=== PATIENT | female | born 1930 | race Caucasian/White ===

== ENCOUNTER 2018-07-06 13:49 | Inpatient (IN) ==
[2018-07-06] MEDS ORDERED: ACETAMINOPHEN 325 MG TABLET PO PRN (16:17)
[2018-07-06] MEDS ORDERED: NORMAL SALINE 1,000 ML IV ONE (16:20)
--- NOTE | 2018-07-06 16:47 | HP ---
Chief Complaint - Chief Complaint Date of Service: 07/06/18 Time of Service: 16:29 Chief Complaint: I have left hip pain History of Present Illness: 88-year-old female with past medical history of type 2 diabetes, hyperlipidemia, old CVA, gout, was evaluated in the internal medicine clinic for a left femoral neck fracture captured on x-rays. Patient reported stumbling 3 weeks ago and almost falling but stopped herself from falling by grabbing onto something and since then having left hip pain that radiates to her left knee. Since the incident patient has been bearing weight but with discomfort but says that her left knee was becoming more painful and stiff. Patient was seen yesterday here in the internal medicine clinic for left knee pain and left hip discomfort and only crepitance was detected on physical exam. Patient denies falling during that visit but only referred to almost stumbling a couple of weeks prior. Given the presentation of the patient's left lower extremity discomfort, chronic osteoarthritis was suspected and patient was instructed to take Tylenol for pain and was referred to physical therapy for evaluation and treatment. However, patient reports this morning when she woke up from bed her ambulation became very painful and she was barely able to bear weight. She was taken to her physical therapy appointment where staff noticed that patient was unable to bear weight or transfer from one position to another. Her PCP, myself was notified of her significant pain and bilateral hip and left knee x-rays were ordered. Shortly after that a left femoral neck fracture was reported by the radiologist and orthopedic consult. The orthopedic that is on-call presently which is Dr. Rivera was notified and presented the case and he informed me that he will be traveling out of town to Dr. Antonio would be the surgeon on the case. Therefore decision to admit patient to inpatient [facility]rez was taken. Patient is currently on Plavix and aspirin for an old CVA, and those medications were placed on hold for possible surgery in the morning. Patient has a GFR of 33 on her last labs, likely secondary to her chronic conditions such as type 2 diabetes. We will admit her with IV hydration for optimal renal function. She also has a hemoglobin of 9 likely secondary to anemia of chronic disease related to her kidney disease. Patient was scheduled to see a electric stove mechanic at the end of this month for evaluation of her kidney function. 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 Urinary incontinence Onset Date: Unknown Surgical History: Surgical History (Updated 07/06/18 @ 16:47 by Nancy Alford MD) Cholecystectomy planned Onset Date: Unknown Colonoscopy planned Onset Date: ~2003 H/O: hysterectomy Onset Date: Unknown Hx of appendectomy Onset Date: Unknown Hx of eye surgery Onset Date: ~05/01/15 injection in right eye- [place] Status post surgical removal of malignant neoplasm of skin Onset Date: ~08/06/16 squamous cell carcinoma upper lip- Dr Nagy Family History: Family History (Updated 09/29/17 @ 14:25 by Ivy Michelle RN) Father Emphysema lung Mother Diabetes Anemia Hypertension Brother CVA (cerebral vascular accident) Diabetes Parkinson disease TIA (transient ischemic attack) Sister , age 74 Myocardial infarction Social History: Preferred Language Hebrew Smoking Status Never smoker Abuse History No History of abuse Psych History Hx of Anxiety (Last Updated 07/06/18 @ 15:42 by Nancy Alford MD) No Social History Section defined Peds Patient Hx - Developmental: No Pertinent Hx Peds Patient Hx - Medical: No Pertinent Hx Peds Patient Hx - Cardiac/Respiratory: No Pertinent Hx Peds Patient Hx - Surgical: No Surgical History Patient History - Cancer: No Hx of Cancer Review Of Systems (GEN) - Review of Systems Generalized/Overall Review: Present: No Symptoms Reported EENTM: Present: No Symptoms Reported Respiratory: Present: No Symptoms Reported Cardiac: Present: No Symptoms Reported Abdominal: Present: No Symptoms Reported Genitourinary: Present: No Symptoms Reported Musculoskeletal: Present: Joint Pain, Joint Swelling - Left hip pain Neurological: Present: No Symptoms Reported Skin: Present: No Symptoms Reported Endocrine: Present: No Symptoms Reported Immunizations: IMMUNIZATION HX Immunizations Up to Date Yes History of Influenza Vaccine More Information Required Hx Pneumococcal Vaccination More Information Required Allergies/Adverse Reactions: Allergies Allergy/AdvReac Type Severity Reaction Status Date / Time No Known Allergies Allergy Verified 07/06/18 14:33 Home Medications: HOME MEDICATIONS Cholecalciferol (Vitamin D3) [Vitamin D-3] 2,000 unit PO DAILY@1200 #100 tab 04/02/15 [Last Taken Unknown] aspirin 81 mg tablet,delayed release 81 mg PO DAILY 09/29/17 [Last Taken Unknown] ascorbic acid (vitamin C) 500 mg capsule 500 mg PO DAILY cap 10/11/17 [Last Taken Unknown] atorvastatin 40 mg tablet 40 mg PO DAILY #90 tab 03/09/18 [Last Taken Unknown] blood-glucose meter kit See Dose Instructions .ROUTE .MEDSUPPLY ea 04/04/18 [Last Taken Unknown] folic acid-vit B6-vit B12 0.8 mg-10 mg-115 mcg tablet 1 tab PO DAILY #90 tab 04/04/18 [Last Taken Unknown] magnesium 30 mg tablet 30 mg PO DAILY 04/04/18 [Last Taken Unknown] allopurinol 300 mg tablet See Rx Instructions .ROUTE .COMPLEX #90 tablet 04/07/18 [Last Taken Unknown] blood sugar diagnostic strips See Dose Instructions .ROUTE .MEDSUPPLY #100 ea 04/14/18 [Last Taken Unknown] lancets 30 gauge See Dose Instructions .ROUTE .MEDSUPPLY #100 ea 04/14/18 [Last Taken Unknown] magnesium oxide 400 mg capsule 400 mg PO DAILY cap 05/11/18 [Last Taken Unknown] carvedilol 6.25 mg tablet 6.25 mg PO BID #60 tab 05/16/18 [Last Taken Unknown] metformin ER 500 mg tablet,extended release 24 hr See Rx Instructions .ROUTE .COMPLEX #60 tablet 06/20/18 [Last Taken Unknown] clopidogrel 75 mg tablet See Rx Instructions .ROUTE .COMPLEX #30 tablet 06/22/18 [Last Taken Unknown] lisinopril 20 mg tablet See Rx Instructions .ROUTE .COMPLEX #60 tablet 06/22/18 [Last Taken Unknown] Exam - Exam Constitutional: Present: Alert, Oriented x3, Cooperative, Well developed, Well nourished, No distress, Elderly ENT Exam: Present: normal ENT inspection, hearing grossly normal, pharynx no rmal, TMs normal Eye Exam: bilateral eye: normal inspection, PERRL, EOMI Neck: Present: non-tender, full range of motion, supple, normal inspection, t rachea midline Back Exam: Present: normal inspection, no CVA tenderness, no vertebral tenderness Breasts: Present: Exam deferred Respiratory: Present: chest non-tender, lungs clear, normal breath sounds, no respiratory distress, no accessory muscle use Cardiovascular/Chest: Present: normal peripheral pulses, regular rate, rhythm, no chest tenderness, no edema, no gallop, no JVD, no murmur, no rub Peripheral Pulses: carotid (R): 3+, carotid (L): 3+, femoral (R): 3+, femoral (L): 3+, dorsalis-pedis (R): 3+, dorsalis-pedis (L): 3+ Abdomen: Present: Normal bowel sounds, soft, nontender, nondistended, no rebound tenderness, no hepatospenomegaly, no masses /Rectal: Present: Exam deferred Extremity: Present: no pedal edema, no calf tenderness, normal capillary refill, leg pain, other - Left lower extremity externally rotated with marked tenderness at the left. Large ecchymosis of right upper extremity with no tenderness Skin Exam: Present: normal color, warm/dry, no cyanosis Lymphatic: Present: no adenopathy Neurologic: Present: it teacher II-XII nml as tested, normal cerebellar test, no motor/sensory deficits, alert, normal mood/affect, oriented x 3 Appearance: Present: appropriate appearance, appropriate insight, neat Eye contact: Present: cooperative, good eye contact, normal speech Thoughts: Present: normal thought pattern, no apparent hallucination Assessment/Plan - Narrative Narrative: Patient was evaluated medical chart was reviewed and decision to admit with a diagnosis of a left femoral neck fracture with consult to orthopedic surgery was taken. Case was presented to Dr. Rivera who is a physician preparation plant supervisor today when he said that he would alert Dr. Mares which will be covering on the case. Patient's Plavix and aspirin were placed on hold for possible surgery in the morning, IV hydration optimal renal function was ordered, as well as baseline labs. All routine meds were ordered to be administered during the patient's hospital stay. We will follow-up with recommendations from Ortho for a possible arthroplasty. After evaluating patient she was cleared for surgery. - Assessment/Plan (1) Left hip pain Problem: Acute (2) Left displaced femoral neck fracture Problem: Acute (3) Diabetes Problem: Chronic Qualifiers: Diabetes mellitus type: type 2 (4) CKD (chronic kidney disease) stage 3, GFR 30-59 ml/min Problem: Chronic (5) Anemia of chronic disease Problem: Chronic
[2018-07-06 16:59] LABS: Hematocrit 24.8 % (37.0-47.0); Hemoglobin 8.2 gm/dL (12.5-16.0); Mean Cell Volume 103.3 fl (78-100); Mean Corpuscular Hemoglobin 34.2 pg (27-31); Mean Corpuscular Hgb Conc 33.1 g/dl (32-36); Mean Platelet Volume 10.9 fl (8-12.5); Neutrophil # 10.2 K/mm3 (1.3-6.0); Neutrophil % 82.5 % (42-75.0); Platelet Count 144 K/mm3 (150-450); Red Cell Distribution Width 15.6 % (11.5-14.0); White Blood Count 12.4 K/mm3 (4.0-10.5)
[2018-07-06 17:11] LABS: Prothrombin Time (Patient) 12.6 Seconds (9.1-10.7)
[2018-07-06 17:12] LABS: Albumin * 2.8 gm/dl (3.4-5.0); BUN/Creatinine Ratio 23.7 (9.0-21.6); Bilirubin, Total 1.8 mg/dL (0.0-1.1); Ca. Corrected For Albumin 10.2 mg/dL (8.4-10.2); Calcium * 9.6 mg/dL (7.9-10.9); Carbon Dioxide 24.5 mmol/L (24-32.6); INR 1.29 INR (0.92-1.08); Partial Thrombolplastin Time 35.7 Seconds (24-32); Potassium 4.5 mmol/L (3.4-4.6); Total Protein 6.6 gm/dL (6.2-8.2)
[2018-07-06] MEDS: ALLOPURINOL 300 MG TABLET PO SCH (17:58)
[2018-07-06] MEDS ORDERED: ROSUVASTATIN CALCIUM 10 MG TABLET ONE (21:08)
[2018-07-06] MEDS: CARVEDILOL 6.25 MG TABLET PO SCH (21:28)
[2018-07-06] MEDS: ROSUVASTATIN CALCIUM 20 MG TABLET PO SCH (21:30)
[2018-07-06] MEDS: PANTOPRAZOLE SODIUM 20 MG TABLET.DR PO SCH (21:30)
[2018-07-06] MEDS: MORPHINE SULFATE 2 MG/ML DISP.SYRIN IV PRN (21:33)
[2018-07-07] MEDS: PANTOPRAZOLE SODIUM 20 MG TABLET.DR PO SCH ×2 (07:19→21:06)
--- NOTE | 2018-07-07 07:49 | CONS ---
[facility] - General Date of Service: 07/06/18 Narrative: Patient presented to her PCP with inability to ambulate and left hip pain. X- rays were obtained by patient's PCP revealing a left femoral neck fracture with significant displacement. Orthopedics was consulted, patient was admitted to the hospital. Per patient and family she had no significant fall, notes she may have stumbled the other day while walking. They state patient's pain is significantly worse with any motion or weightbearing, better with rest. Patient states she walks with a cane outside of her home and occasionally inside her home. Patient is a community ambulator, she lives at home with 2 of her daughters. No significant previous treatments have been performed for this left hip pain. Source: patient, family - History of Present Illness Allergies/Adverse Reactions: Allergies No Known Allergies Allergy (Verified 07/06/18 17:50) Home Medications: Home Medications Medication Instructions Recorded Last Taken blood-glucose meter kit See Dose Instructions .ROUTE 04/04/18 Unknown .MEDSUPPLY ea blood sugar diagnostic strips See Dose Instructions .ROUTE 04/14/18 Unknown .MEDSUPPLY #100 ea lancets 30 gauge See Dose Instructions .ROUTE 04/14/18 Unknown .MEDSUPPLY #100 ea Acetaminophen [Tylenol] 500 mg PO Q4H 07/06/18 Unknown Allopurinol [Zyloprim] 300 mg PO DAILY 07/06/18 Unknown Aspirin [Aspirin EC] 81 mg PO HS 07/06/18 Unknown Carvedilol [Coreg] 6.25 mg PO BID 07/06/18 Unknown Cholecalciferol (Vitamin D3) 2,000 unit PO DAILY 07/06/18 Unknown [Vitamin D] Clopidogrel Bisulfate [Plavix] 75 mg PO DAILY 07/06/18 Unknown RX: Atorvastatin Calcium 40 mg PO HS 07/06/18 Unknown RX: Folic Acid 0.4 mg PO DAILY 07/06/18 Unknown RX: Lisinopril 20 mg PO DAILY 07/06/18 Unknown Ubidecarenone [Coenzyme Q10] 100 mg PO DAILY 07/06/18 Unknown metFORMIN HCL [Glucophage] 500 mg PO BID 07/06/18 Unknown Procedures 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] (06/21/07) Medications - Medications Current Medications: Current Medications Acetaminophen (Tylenol) 650 mg PO Q6H PRN PRN Reason: Mild pain (pain scale 1-3) Stop: 08/05/18 16:18 Last Admin: 07/06/18 18:00 Dose: 650 mg Documented by: Allopurinol (Zyloprim) 300 mg PO DAILY [facility] Stop: 08/05/18 16:31 Last Admin: 07/06/18 17:58 Dose: 300 mg Documented by: Carvedilol (Coreg) 6.25 mg PO BID [facility] Stop: 08/05/18 21:01 Last Admin: 07/06/18 21:28 Dose: 6.25 mg Documented by: Metformin HCl (Glucophage Xr) 500 mg PO BIDWM [facility] Stop: 08/05/18 17:01 Last Admin: 07/06/18 17:58 Dose: 500 mg Documented by: Morphine Sulfate (Morphine Sulfate) 1 mg IV Q2H PRN PRN Reason: Pain Stop: 08/05/18 17:00 Last Admin: 07/06/18 21:33 Dose: 1 mg Documented by: Pantoprazole Sodium (Protonix) 20 mg PO BID@0700,2100 [facility] Stop: 08/05/18 21:01 Last Admin: 07/07/18 07:19 Dose: 20 mg Documented by: Rosuvastatin Calcium (Crestor) 20 mg PO HS [facility] Stop: 08/05/18 21:01 Last Admin: 07/06/18 21:30 Dose: 20 mg Documented by: Physical Examination - Exam Vital Signs: Vital Signs - Last Taken Temp 36.3 C 07/07/18 06:35 Pulse 92 07/07/18 06:35 Resp 16 07/07/18 06:35 BP 127/70 07/07/18 06:35 Pulse Ox 98 07/07/18 06:35 O2 Oxygen Delivery Method Room Air Constitutional: Present: Alert, Cooperative, Mild distress Extremity: Present: other - RUE--> significant ecchymosis around proximal humerus, sensation intact light touch, distal capillary refill brisk, smoke jumper strength 4+/5, mild diffuse tenderness about her right shoulder LLE--> diffuse tenderness about her right hip, significant external rotation and shortening of the limb, 5/5 plantar flexion dorsiflexion of left ankle, dorsal pedis pulse 2+, sensation intact light touch, mild ecchymosis diffusely about hip - Results and Findings: Lab/Microbiology results last 24 hrs: Abnormal/Pending Laboratory Last 24 HRS 07/07/18 07/06/18 07/06/18 06:40 16:50 16:50 WBC RBC Hgb Hct MCV MCH RDW Plt Count Immature Gran % (Auto) Immature Gran # (Auto) Neutrophils % Lymphocytes % Neutrophils # Lymphocytes # PT 12.6 H INR (Anticoag Therapy) 1.29 H PTT ([place]) 35.7 H Anion Gap 16.0 H BUN 37 H Creatinine 1.56 H Est GFR (Non-Af Amer) 33 L BUN/Creatinine Ratio 23.7 H Random Glucose 224 H Total Bilirubin 1.8 H AST 74 H Alkaline Phosphatase 347 H Albumin 2.8 L Crossmatch See Detail 07/06/18 16:50 WBC 12.4 H RBC 2.40 L Hgb 8.2 L Hct 24.8 L MCV 103.3 H MCH 34.2 H RDW 15.6 H Plt Count 144 L Immature Gran % (Auto) 0.60 H Immature Gran # (Auto) 0.07 H Neutrophils % 82.5 H Lymphocytes % 8.4 L Neutrophils # 10.2 H Lymphocytes # 1.04 L PT INR (Anticoag Therapy) PTT ([place]) Anion Gap BUN Creatinine Est GFR (Non-Af Amer) BUN/Creatinine Ratio Random Glucose Total Bilirubin AST Alkaline Phosphatase Albumin Crossmatch - Assessments/Findings (1) Left displaced femoral neck fracture Problem: Acute Plan - Plan Plan: -88-year-old female presented to PCP for evaluation of left hip pain that has been ongoing and worsening over the past week. X-ray revealed displaced femoral neck fracture of the left femur. Patient was unable to ambulate upon presentation. Patient was admitted to the hospital for further care. Discussed with patient and family conservative or surgical intervention including risk first benefits including but not limited to infection, bleeding, DVT, cardiac risk, stroke risk, continued pain, malunion versus nonunion healing, surgical complications. Patient family expressed understanding and stated they wish to proceed with surgical intervention. Consent will be obtained prior to surgery. Plan for Dr. Ricci to perform left hemiarthroplasty versus total hip replacement on 07/07/2018. Patient will need preoperative clearance from medicine team. Note patient has been treated with Plavix and low-dose aspirin daily. At this time these medications have been held, plan to resume postoperatively.
[2018-07-07] MEDS ORDERED: ceFAZolin SODIUM 1 GM VIAL IV PRN (08:12)
[2018-07-07] MEDS: CARVEDILOL 6.25 MG TABLET PO SCH ×3 (08:46→21:16)
[2018-07-07] MEDS: MAGNESIUM OXIDE 400 MG TABLET PO SCH (08:47)
[2018-07-07] MEDS: VITAMIN B COMP W-C 1 TAB TABLET PO SCH (08:47)
[2018-07-07] MEDS: ASCORBIC ACID 500 MG TABLET PO SCH (08:47)
[2018-07-07] MEDS: MAGNESIUM 30 MG PO SCH (08:47)
[2018-07-07] MEDS: ALLOPURINOL 300 MG TABLET PO SCH (08:48)
[2018-07-07] MEDS: LISINOPRIL 20 MG TABLET PO SCH (08:48)
--- NOTE | 2018-07-07 10:15 | PN ---
Subjective - Date and Time Seen Date: 07/07/18 Time: 10:00 Objective Objective Narrative: I feel comfortable, left hip pain is well controlled - Review of Systems Generalized/Overall Review: Reports: No Symptoms Reported EENTM: Reports: No Symptoms Reported Respiratory: Reports: No Symptoms Reported Cardiac: Reports: No Symptoms Reported Abdominal: Reports: No Symptoms Reported Genitourinary Symptoms: Reports: No Symptoms Reported Musculoskeletal Complaints: Reports: Joint Pain Neurological: Reports: No Symptoms Reported Skin: Reports: No Symptoms Reported Endocrine: Reports: No Symptoms Reported - Vitals Vitals: Last Vital Signs Temp 36.3 C 07/07/18 06:35 Pulse 92 07/07/18 08:48 Resp 16 07/07/18 06:35 BP 127/70 07/07/18 08:48 Pulse Ox 98 07/07/18 06:35 - Abnormal Lab Findings Abnormal Lab Findings: Abnormal Lab Results 07/06/18 07/06/18 07/06/18 Range/Units 16:50 16:50 16:50 WBC 12.4 H (4.0-10.5) K/mm3 RBC 2.40 L (4.2-5.4) M/mm3 Hgb 8.2 L (12.5-16.0) gm/dL Hct 24.8 L (37.0-47.0) % MCV 103.3 H (78-100) fl MCH 34.2 H (27-31) pg RDW 15.6 H (11.5-14.0) % Plt Count 144 L (150-450) K/mm3 Immature Gran % (Auto) 0.60 H (0.001-0.429) % Immature Gran # (Auto) 0.07 H (0.000-0.0310) K/mm3 Neutrophils % 82.5 H (42-75.0) % Lymphocytes % 8.4 L (20-51) % Neutrophils # 10.2 H (1.3-6.0) K/mm3 Lymphocytes # 1.04 L (1.5-3.5) k/mm3 PT 12.6 H (9.1-10.7) Seconds INR (Anticoag Therapy) 1.29 H (0.92-1.08) INR PTT ([place]) 35.7 H (24-32) Seconds Anion Gap 16.0 H (6.8-13.8) mmol/L BUN 37 H (3-23) mg/dL Creatinine 1.56 H (0.4-1.4) mg/dL Est GFR (Non-Af Amer) 33 L (60-130) mL/min BUN/Creatinine Ratio 23.7 H (9.0-21.6) Random Glucose 224 H (70-110) mg/dL Total Bilirubin 1.8 H (0.0-1.1) mg/dL AST 74 H (0-48) U/L Alkaline Phosphatase 347 H (50-170) U/L Albumin 2.8 L (3.4-5.0) gm/dl Crossmatch 07/07/18 Range/Units 06:40 WBC (4.0-10.5) K/mm3 RBC (4.2-5.4) M/mm3 Hgb (12.5-16.0) gm/dL Hct (37.0-47.0) % MCV (78-100) fl MCH (27-31) pg RDW (11.5-14.0) % Plt Count (150-450) K/mm3 Immature Gran % (Auto) (0.001-0.429) % Immature Gran # (Auto) (0.000-0.0310) K/mm3 Neutrophils % (42-75.0) % Lymphocytes % (20-51) % Neutrophils # (1.3-6.0) K/mm3 Lymphocytes # (1.5-3.5) k/mm3 PT (9.1-10.7) Seconds INR (Anticoag Therapy) (0.92-1.08) INR PTT ([place]) (24-32) Seconds Anion Gap (6.8-13.8) mmol/L BUN (3-23) mg/dL Creatinine (0.4-1.4) mg/dL Est GFR (Non-Af Amer) (60-130) mL/min BUN/Creatinine Ratio (9.0-21.6) Random Glucose (70-110) mg/dL Total Bilirubin (0.0-1.1) mg/dL AST (0-48) U/L Alkaline Phosphatase (50-170) U/L Albumin (3.4-5.0) gm/dl Crossmatch See Detail - Exam Constitutional: Present: Alert, Oriented x3, Cooperative, Well developed, Well nourished, No distress ENT Exam: Present: normal ENT inspection, hearing grossly normal, pharynx normal, TMs normal, hard of hearing Neck: Present: non-tender, full range of motion, supple, normal inspection, trachea midline Breasts: Present: Exam deferred Respiratory: Present: chest non-tender, lungs clear, normal breath sounds, no respiratory distress, no accessory muscle use Cardiovascular/Chest: Present: normal peripheral pulses, regular rate, rhythm, no chest tenderness, no edema, no gallop, no JVD, no murmur Abdomen: Present: Normal bowel sounds, soft, nontender, nondistended, no rebound tenderness, no hepatospenomegaly /Rectal: Present: Exam deferred Extremity: Present: no pedal edema, no calf tenderness, normal capillary refill, leg pain, other - Left hip tenderness on palpation, left lower extremity with external rotation Skin Exam: Present: normal color, warm/dry, no cyanosis Lymphatic: Present: no adenopathy Neurologic: Present: coal handler II-XII nml as tested Appearance: Present: appropriate appearance, appropriate insight, neat, no memory impairment Eye contact: Present: cooperative, good eye contact, normal speech Thoughts: Present: normal thought pattern, no apparent hallucination Assessment/Plan Plan Narrative: 88-year-old female admitted for left femoral neck fracture was evaluated at bedside was found to be afebrile and in no acute distress. [facility], no irregular behaviors or adverse were reported by nursing staff. Patient underwent an EKG which demonstrated normal sinus rhythm and an adequate rate. Presurgical chest x-ray was also ordered which was negative for any acute infections or other abnormal findings. Patient's presurgical labs demonstrated a hemoglobin of 8.2 which indicates a decrease since her last CBC and then in April. Patient has chronic kidney disease stage III which might explain the decreased hemoglobin, it is very likely that she has anemia of chronic disease. However as a precaution and in preparation for surgical repair of her left hip fracture, patient was ordered to be transfused one-pint of PRBCs and another pint was held in case of excessive bleeding during surgery. Patient was also treated with IV fluids to optimize her renal function before surgery. She was evaluated by Dr. Antonio who is the orthopedic surgeon that we will be performing her arthroplasty later this afternoon. He was in agreement with the blood transfusion and plan to taken to the OR later today as previously stated. In the meantime patient's metformin was discontinued given her decreased GFR and as a precaution to avoid lactic ac idosis, she was placed on an insulin sliding scale for management of her diabetes during the hospitalization. Follow-up labs will be ordered for tomorrow morning to follow up on kidney function and hemoglobin. After thorough evaluation of the patient and medical chart patient was cleared for surgical procedure to repair her left femoral neck fracture. Patient will be signed off to Dr. Brain Wagoner since I will be away starting later this afternoon. - Problems/Diagnosis (1) Left hip pain Problem: Acute (2) Left displaced femoral neck fracture Problem: Acute (3) Diabetes Problem: Chronic Qualifiers: Diabetes mellitus type: type 2 (4) CKD (chronic kidney disease) stage 3, GFR 30-59 ml/min Problem: Chronic (5) Anemia of chronic disease Problem: Chronic
[2018-07-07] MEDS: CHOLECALCIFEROL 1,000 UNIT CAPSULE PO SCH (12:10)
--- NOTE | 2018-07-07 12:10 | PN ---
Subjective - Date and Time Seen Date: 07/07/18 Time: 10:00 Subjective Narrative: Patient is resting comfortable in bed. Family is in room casually. Patient notes she her pain is well controlled at this time. She notes her pain is worse with movement better with rest. She notes no significant acute symptoms otherwise currently. Objective - Vitals Vitals: Last Vital Signs Temp 36.7 C 07/07/18 11:31 Pulse 92 07/07/18 11:31 Resp 16 07/07/18 11:31 BP 133/52 07/07/18 11:31 Pulse Ox 95 07/07/18 11:31 - Abnormal Lab Findings Abnormal Lab Findings: Abnormal Lab Results 07/06/18 07/06/18 07/06/18 Range/Units 16:50 16:50 16:50 WBC 12.4 H (4.0-10.5) K/mm3 RBC 2.40 L (4.2-5.4) M/mm3 Hgb 8.2 L (12.5-16.0) gm/dL Hct 24.8 L (37.0-47.0) % MCV 103.3 H (78-100) fl MCH 34.2 H (27-31) pg RDW 15.6 H (11.5-14.0) % Plt Count 144 L (150-450) K/mm3 Immature Gran % (Auto) 0.60 H (0.001-0.429) % Immature Gran # (Auto) 0.07 H (0.000-0.0310) K/mm3 Neutrophils % 82.5 H (42-75.0) % Lymphocytes % 8.4 L (20-51) % Neutrophils # 10.2 H (1.3-6.0) K/mm3 Lymphocytes # 1.04 L (1.5-3.5) k/mm3 PT 12.6 H (9.1-10.7) Seconds INR (Anticoag Therapy) 1.29 H (0.92-1.08) INR PTT (Jenni) 35.7 H (24-32) Seconds Anion Gap 16.0 H (6.8-13.8) mmol/L BUN 37 H (3-23) mg/dL Creatinine 1.56 H (0.4-1.4) mg/dL Est GFR (Non-Af Amer) 33 L (60-130) mL/min BUN/Creatinine Ratio 23.7 H (9.0-21.6) Random Glucose 224 H (70-110) mg/dL Total Bilirubin 1.8 H (0.0-1.1) mg/dL AST 74 H (0-48) U/L Alkaline Phosphatase 347 H (50-170) U/L Albumin 2.8 L (3.4-5.0) gm/dl Crossmatch 07/07/18 Range/Units 06:40 WBC (4.0-10.5) K/mm3 RBC (4.2-5.4) M/mm3 Hgb (12.5-16.0) gm/dL Hct (37.0-47.0) % MCV (78-100) fl MCH (27-31) pg RDW (11.5-14.0) % Plt Count (150-450) K/mm3 Immature Gran % (Auto) (0.001-0.429) % Immature Gran # (Auto) (0.000-0.0310) K/mm3 Neutrophils % (42-75.0) % Lymphocytes % (20-51) % Neutrophils # (1.3-6.0) K/mm3 Lymphocytes # (1.5-3.5) k/mm3 PT (9.1-10.7) Seconds INR (Anticoag Therapy) (0.92-1.08) INR PTT (Ejnni) (24-32) Seconds Anion Gap (6.8-13.8) mmol/L BUN (3-23) mg/dL Creatinine (0.4-1.4) mg/dL Est GFR (Non-Af Amer) (60-130) mL/min BUN/Creatinine Ratio (9.0-21.6) Random Glucose (70-110) mg/dL Total Bilirubin (0.0-1.1) mg/dL AST (0-48) U/L Alkaline Phosphatase (50-170) U/L Albumin (3.4-5.0) gm/dl Crossmatch See Detail - Exam Constitutional: Present: Alert, Cooperative Extremity: Present: other - LLE--> no obvious wounds or deformity, significant shortening and external rotation of the hip, diffuse tenderness about her hip, 5/5 plantar flexion dorsiflexion ankle, distal capillary refill brisk, sensation intact light touch Assessment/Plan Plan Narrative: -88-year-old female who was admitted for a left displaced femoral neck fracture. Discussed conservative or surgical intervention previously, discussed again today with the family, consent was obtained for surgical intervention on . Patient will undergo surgery with plan to continue treatment care in the hospital. Patient will need pain control, observation, PT/OT, possible discharge to long-term facility after surgical intervention will be determined. Patient will undergo left hip cemented hemiarthroplasty by Dr. Ricci. All patient family questions have been asked, they expressed understanding of the surgical risk as well as treatment plan. - Problems/Diagnosis (1) Left displaced femoral neck fracture Problem: Acute
[2018-07-07] MEDS: INSULIN REGULAR, HUMAN 100 UNITS/ML VIAL SC SCH ×3 (12:11→21:07)
--- NOTE | 2018-07-07 13:59 | ANES ---
Anesthesia Pre Procedure Eval Vitals/Labs: Last Vital Signs Temp 36.7 C 07/07/18 11:31 Pulse 92 07/07/18 11:31 Resp 16 07/07/18 11:31 BP 133/52 07/07/18 11:31 Pulse Ox 95 07/07/18 11:31 HOME MEDICATIONS blood-glucose meter kit See Dose Instructions .ROUTE .MEDSUPPLY ea 04/04/18 [Last Taken Unknown] blood sugar diagnostic strips See Dose Instructions .ROUTE .MEDSUPPLY #100 ea 04/14/18 [Last Taken Unknown] lancets 30 gauge See Dose Instructions .ROUTE .MEDSUPPLY #100 ea 04/14/18 [Last Taken Unknown] Acetaminophen [Tylenol] 500 mg PO Q4H 07/06/18 [Last Taken Unknown] Allopurinol [Zyloprim] 300 mg PO DAILY 07/06/18 [Last Taken Unknown] Aspirin [Aspirin EC] 81 mg PO HS 07/06/18 [Last Taken Unknown] Atorvastatin Calcium 40 mg PO HS 07/06/18 [Last Taken Unknown] Carvedilol [Coreg] 6.25 mg PO BID 07/06/18 [Last Taken Unknown] Cholecalciferol (Vitamin D3) [Vitamin D] 2,000 unit PO DAILY 07/06/18 [Last Taken Unknown] Clopidogrel Bisulfate [Plavix] 75 mg PO DAILY 07/06/18 [Last Taken Unknown] Folic Acid 0.4 mg PO DAILY 07/06/18 [Last Taken Unknown] Lisinopril 20 mg PO DAILY 07/06/18 [Last Taken Unknown] Ubidecarenone [Coenzyme Q10] 100 mg PO DAILY 07/06/18 [Last Taken Unknown] metFORMIN HCL [Glucophage] 500 mg PO BID 07/06/18 [Last Taken Unknown] Allergies/Adverse Reactions: Allergies Allergy/AdvReac Type Severity Reaction Status Date / Time No Known Allergies Allergy Verified 07/06/18 17:50 - Planned Procedure Planned Procedure: Left HIP FX Medication List Reviewed:: Yes Allergies Verified: Yes 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 Urinary incontinence Onset Date: Unknown Surgical History (Updated 07/06/18 @ 16:47 by Nancy Alford MD) Cholecystectomy planned Onset Date: Unknown Colonoscopy planned Onset Date: ~2003 H/O: hysterectomy Onset Date: Unknown Hx of appendectomy Onset Date: Unknown Hx of eye surgery Onset Date: ~05/01/15 injection in right eye- [place] Status post surgical removal of malignant neoplasm of skin Onset Date: ~08/06/16 squamous cell carcinoma upper lip- Dr Nagy Family History (Updated 09/29/17 @ 14:25 by Ivy Michelle, SHAUNA) Father Emphysema lung Mother Diabetes Anemia Hypertension Brother CVA (cerebral vascular accident) Diabetes Parkinson disease TIA (transient ischemic attack) Sister , age 74 Myocardial infarction - Family Anesthesia History Family History:: no untoward family reactions to anesthesia - Airway/Neck/Teeth Teeth Condition: missing Neck Exam: limited range of motion Mallampatti Score: 3 Thyromental (T-M) distance: > 6 cm Mandibulo Hyoid distance: > 3 cm - Respiratory Respiratory Physical: lungs clear Smoking Status: Never smoker Sleep Apnea currently treated: No Sleep Apnea by current assessment: No - Cardiovascular Cardiac History: CVA/stroke, hypertension Tolerate Activity: Fair Heart Sounds: S1 & S2, Regular - Anesthesia Assessment and Plan ASA Class: PS, III Anesthesia Type Plan: General ET Planned difficult intubation/equipment available: Yes
[2018-07-07] MEDS: RINGER'S SOLUTION,LACTATED 1,000 ML IV PRN ×3 (16:25→18:30)
[2018-07-07] MEDS ORDERED: HYDROcodone/ACETAMINOPHEN 1 EACH TABLET PO PRN (18:13)
[2018-07-07] MEDS ORDERED: ACETAMINOPHEN 500 MG TABLET PO PRN (18:13)
[2018-07-07] MEDS ORDERED: MAG HYDROX/ALUMINUM HYD/SIMETH 30 ML UDC PO PRN (18:13)
[2018-07-07] MEDS ORDERED: MAGNESIUM HYDROXIDE 30 ML UDC PO PRN (18:13)
[2018-07-07] MEDS ORDERED: ONDANSETRON HCL/PF 2 MG/ML VIAL IV PRN (18:13)
--- NOTE | 2018-07-07 18:20 | OR ---
Operative Report - Dictated Report Narrative: Date: 07/07/2018 Preoperative diagnosis: Closed left hip displaced femoral neck fracture. Postoperative diagnosis: Closed left hip displaced femoral neck fracture Procedure: Left hip cemented arabella-arthroplasty. Surgeon: Timoteo Ricci M.D. Drafter Refrigeration: Lorenzo Ribeiro PA-C (provided essential set of skilled, educated hands that assisted with transfer, positioning, prepping, draping, retraction, manipulation, placement of implants, irrigation, closure wounds, and application of dressings all of which could not be performed by the available surgical crew) Anesthesia: General Complications: None Specimens: Bone. Estimated blood loss: 150 milliliters. Retained implants: Depuy Crane size 3 basic cemented femoral stem. Size 43 millimeter ouside diameter self-centering bipolar head with +1.5 millimeter cobalt chromium 28 mm femoral head. Indications: Mrs. Estrada is a 88-year-old female who fell at home resulting in injury to her left hip. This patient was evaluated on the floor and found to have sustained a displaced femoral neck fracture. The risks and benefits were discussed with the patient as well as any power of manager long term care or family . The patient wished to proceed with surgical treatment. The risks, benefits, and alternatives discussed were , blood clots, bleeding, infection, nerve/tendon blood vessel/ injury, malposition of components, dislocation and/or instability of joint, intraoperative fracture, postoperative limited range of motion, persistent pain, failure of components, and need for additional procedures. Patient wished to proceed. Consent was obtained after answering all questions. Procedure: After marking the correct extremity on the floor, the patient was taken to the operating room. A timeout was performed. IV antibiotics consisting of Ancef were administered prior to the procedure. A general anesthetic was induced by anesthesia. A Lafleur catheter was inserted if not are in place. The patient was then transitioned to a lateral position on a well- padded pegboard. An axillary roll was placed. The head was in neutral position. The non-operative down leg was well-padded with SCD and JIMMIE hose in place. The arms were supported and padded to protect from any undue pressure on the bony prominences and nerves. Well-padded anterior and posterior pelvic and chest posts were secured in order to maintain a stable position of the pelvis. This was placed so that the pelvis was perpendicular to the floor. The body was in line with the pelvis. Once it was felt that we had protected all the bony prominences and the patient was well secured with a safety belt as well, the leg was pre-scrubbed with alcohol, prepped and draped in a standard sterile fashion. A standard anterior lateral hip incision was marked out over the greater trochanter. Ioban drapes were then placed. The skin incision was then made. Sharp dissection with a scalpel utilizing cautery for hemostasis was carried out down to the gluteus and iliotibial band fascia. This was split in line with the skin incision. The greater trochanter bursa was excised. The anterior and posterior margins of the abductor tendon were identified. The anterior 1/2-1/3 of the tendon was tagged and reflected off the greater trochanter leaving a sleeve of tendon for repair at the completion of the case. This exposed the underlying hip joint capsule. An inverted T-type capsulotomy was made extending this up to the brim of the acetabulum. We encountered noted displacement of the femoral neck fracture. Using Homans to assist with elevation of the soft tissues off the anterior, superior, and inferior aspects of the femoral neck, the hip was then placed in a figure 4 position for a femoral neck cleanup cut to be made. With the leg in an externally rotated and adducted position, the cutting flag was utilized in order to anupama for a standard femoral neck cut approximately a fingerbreadth above the level of the lesser trochanter. This was done while protecting the surrounding soft tissues with Homans. The femoral head was then removed and sized for guidance on the size of the bipolar head. It was noted that there was no significant loss of articular cartilage on both the femoral head and weightbearing portions of the acetabulum. We then returned the leg to the table and turned our attention to the acetabulum. While protecting the surrounding soft tissues, the labrum and remaining tissue in the fovea were excised using a scalpel and cautery. The acetabulum was then protected with a sponge while we returned our attention to the femur. With the leg in a figure 4 position utilizing Homans for soft tissue protection, a box cutting osteotome, followed by Carrieey awl, followed by serial broaches were utilized in order to prepare the femur. It was found that a size 3 broach gave good axial and rotational stability. The proximal femur was visualized to ensure that there were no signs of fracture. A series of heads were trialed. It was found that a + 1.5 mm femoral head gave good overall stability. There is minimal longitudinal instability. Hip range of motion was able to reach full extension and external rotation to greater than 75 degrees prior to impingement along the posterior acetabulum. The hip was able to be flexed to greater than 90 degrees with internal rotation greater than 60 degrees prior to anterior impingement. The limb lengths were near equal based on comparison to the contralateral side . At this point was felt this was the appropriately sized femoral components as well as neck and femoral head. The trial implants were removed. A canal cement plug was placed distally and the canal was thoroughly irrigated using pulsatile vacuum brush device. The canal was then thoroughly dried with a suction device. The cement was vacuum mixed per the conveyor system operator's instructions and placed into a cement gun. Cement was then placed in the dry irrigated femur using modern cementing technique using a pressurizing device. The stem was then placed in the appropriate version compared to her pauma anatomy and held in place while the cement cured and the extruded cement was removed. Once the cement was fully cured, we ensured that the stem was stable and that there were no signs of fracture. The remaining extruded cement was removed, and the joint and the capsule were thoroughly evaluated to ensure there are no cement fragments. The final femoral bipolar head was then impacted in the place. The hip was then reduced and seated completely. The capsule was repaired with a single interrupted #1 Vicryl. The abductor tendon was repaired to the greater trochanter utilizing #5 Ethibond through drill holes. This was oversewn with #1 Vicryl. The fascia was closed with #1 stratavara. The wounds were thoroughly irrigated as we closed in layers. The deep and subcutaneous fat layers were closed with 0 Vicryl. The subcutaneous tissue was closed with a running 3-0 Vicryl and the skin with reshma. All sponge, needle, blade, and instrument counts were correct prior to closing the wounds. Sterile dressings consisting of Xeroform, 4 x 4's, ABD, and tape were applied. The patient was awoken and transferred to her hospital bed and then to the postanesthesia care unit in stable condition. Postoperative condition: The plan is to return to the medical/surgical inpatient floor postoperatively. Postoperatively 24 hours of IV antibiotics, pain control, physical therapy, occupational therapy, and medical comanagement will be utilized. Patient will be weightbearing as tolerated with anterior hip precautions. Postoperative films will be obtained in the recovery room.
--- NOTE | 2018-07-07 19:10 | ANES ---
Post Anesthesia Discharge - Transfer of Care Transfer of Care handoff given to nurse: Yes - Discharge from PACU Discharge from PACU when meets criteria: Yes
--- NOTE | 2018-07-07 19:11 | ANES ---
Post Anesthesia Assessment - Vital Signs Vitals: Last Vital Signs Temp 36 C 07/07/18 19:00 Pulse 85 07/07/18 19:00 Resp 16 07/07/18 19:00 BP 92/42 07/07/18 19:00 Pulse Ox 96 07/07/18 19:00 Airway Patency: Normal - Mental Status Level Of Consciousness: Awake - Pain Level Pain Score: 2 - N/V Assessment Nausea/Vomiting Presence: None Dehydration:: No
[2018-07-07] MEDS: ROSUVASTATIN CALCIUM 20 MG TABLET PO SCH (21:05)
[2018-07-07] MEDS: ceFAZolin SODIUM 1 GM in DEXTROSE 5 % IN WATER 100 ML IV SCH ×2 (21:14)
[2018-07-07] MEDS: SENNOSIDES/DOCUSATE SODIUM 1 TAB TABLET PO SCH (21:15)
[2018-07-08] MEDS: RINGER'S SOLUTION,LACTATED 1,000 ML IV PRN (02:16)
[2018-07-08] MEDS: ceFAZolin SODIUM 1 GM in DEXTROSE 5 % IN WATER 100 ML IV SCH ×4 (02:19→09:29)
[2018-07-08 05:33] LABS: Mean Cell Volume 100.5 fl (78-100); Mean Corpuscular Hemoglobin 32.3 pg (27-31); Mean Corpuscular Hgb Conc 32.1 g/dl (32-36); Mean Platelet Volume 10.4 fl (8-12.5); Platelet Count 83 K/mm3 (150-450); Red Blood Count 1.95 M/mm3 (4.2-5.4); Red Cell Distribution Width 17.1 % (11.5-14.0); White Blood Count 7.5 K/mm3 (4.0-10.5)
[2018-07-08 05:51] LABS: Hematocrit 19.6 % (37.0-47.0); Hemoglobin 6.3 gm/dL (12.5-16.0)
[2018-07-08 05:56] LABS: Albumin * 1.8 gm/dl (3.4-5.0); Anion Gap 11.4 mmol/L (6.8-13.8); Bilirubin, Total 0.9 mg/dL (0.0-1.1); Ca. Corrected For Albumin 9.3 mg/dL (8.4-10.2); Calcium * 7.9 mg/dL (7.9-10.9); Carbon Dioxide 25.8 mmol/L (24-32.6); Potassium 4.2 mmol/L (3.4-4.6); Total Protein 4.6 gm/dL (6.2-8.2)
[2018-07-08] MEDS: INSULIN REGULAR, HUMAN 100 UNITS/ML VIAL SC SCH ×4 (07:50→21:51)
[2018-07-08] MEDS: MAGNESIUM OXIDE 400 MG TABLET PO SCH (09:27)
[2018-07-08] MEDS: PANTOPRAZOLE SODIUM 20 MG TABLET.DR PO SCH ×2 (09:27→21:52)
[2018-07-08] MEDS: CARVEDILOL 6.25 MG TABLET PO SCH ×2 (09:27→22:51)
[2018-07-08] MEDS: VITAMIN B COMP W-C 1 TAB TABLET PO SCH (09:28)
[2018-07-08] MEDS: ASCORBIC ACID 500 MG TABLET PO SCH (09:28)
[2018-07-08] MEDS: ALLOPURINOL 300 MG TABLET PO SCH (09:28)
[2018-07-08] MEDS: LISINOPRIL 20 MG TABLET PO SCH (09:28)
[2018-07-08] MEDS: MAGNESIUM 30 MG PO SCH (09:28)
[2018-07-08] MEDS: CHOLECALCIFEROL 1,000 UNIT CAPSULE PO SCH (11:33)
--- NOTE | 2018-07-08 12:43 | PN ---
Subjective - Date and Time Seen Date: 07/08/18 Time: 12:39 Subjective Narrative: Subjective: Reports no significant complaints. Was able to do some bed therapy secondary to her anemia and hypothermia as well as her getting blood. Pain is well-controlled. Catheters in place. Tolerating by mouth intake. Denies any nausea or vomiting. Denies calf pain. Was hypothermic overnigh. Physical exam: Alert and oriented to person, place and time Left lower Extremity: Palpable dorsalis pedis pulse. Sensation grossly intact to light touch. Dressings clean and dry. Able to flex and extend ankle and toes. No excessive drainage. Calf and thigh are soft and nontender. Assessment: Postop day 1 status post left hip arabella-arthroplasty. Plan: Continue with physical and occupational therapy weightbearing as tolerated. Continue with anticoagulation. 24 hours postoperative prophylactic antibiotics. Pain control with goal to rely on oral medications. Continue bowel regimen. Will need 6 weeks with walker or assitive device to protect joint while ambulating during the recovery process. Discharge planning. She is getting 2 units of blood today as well as some rewarming. She is to keep her wound clean and dry and cover with dry gauze. Objective - Vitals Vitals: Last Vital Signs Temp 35.7 C L 07/08/18 11:39 Pulse 86 07/08/18 11:39 Resp 16 07/08/18 11:39 BP 116/65 07/08/18 11:39 Pulse Ox 93 07/08/18 11:39 - Abnormal Lab Findings Abnormal Lab Findings: Abnormal Lab Results 07/07/18 07/08/18 07/08/18 Range/Units 06:40 05:27 05:27 RBC 1.95 L (4.2-5.4) M/mm3 Hgb 6.3 L* D (12.5-16.0) gm/dL Hct 19.6 L* D (37.0-47.0) % MCV 100.5 H (78-100) fl MCH 32.3 H (27-31) pg RDW 17.1 H (11.5-14.0) % Plt Count 83 L (150-450) K/mm3 BUN 29 H (3-23) mg/dL Est GFR (Non-Af Amer) 45 L D (60-130) mL/min BUN/Creatinine Ratio 24.0 H (9.0-21.6) Random Glucose 114 H D (70-110) mg/dL Alkaline Phosphatase 233 H (50-170) U/L Total Protein 4.6 L (6.2-8.2) gm/dL Albumin 1.8 L (3.4-5.0) gm/dl Procalcitonin (0.05-0.50) ng/mL Crossmatch See Detail 07/08/18 Range/Units 08:39 RBC (4.2-5.4) M/mm3 Hgb (12.5-16.0) gm/dL Hct (37.0-47.0) % MCV (78-100) fl MCH (27-31) pg RDW (11.5-14.0) % Plt Count (150-450) K/mm3 BUN (3-23) mg/dL Est GFR (Non-Af Amer) (60-130) mL/min BUN/Creatinine Ratio (9.0-21.6) Random Glucose (70-110) mg/dL Alkaline Phosphatase (50-170) U/L Total Protein (6.2-8.2) gm/dL Albumin (3.4-5.0) gm/dl Procalcitonin 1.03 H (0.05-0.50) ng/mL Crossmatch Assessment/Plan - Problems/Diagnosis (1) Acute blood loss anemia Problem: Acute (2) Status post hip hemiarthroplasty Problem: Acute (3) Left displaced femoral neck fracture Problem: Acute
--- NOTE | 2018-07-08 12:56 | PN ---
Subjective - Date and Time Seen Date: 07/08/18 Time: 12:56 Subjective Narrative: Patient did well overnight, states her pain is been well controlled. She has had low blood pressures which was concerning for possible sepsis. Lab work obtained and ruled out this possibility. Patient was placed in a bear hugger and has been comfortable and her temperature came up to normal since then. She is currently being transfused a unit of blood for hemoglobin dropping overnight following surgery, her vital signs been stable. she has no concerns other than wanting to eat lunch. Objective - Review of Systems Generalized/Overall Review: Reports: No Symptoms Reported EENTM: Reports: No Symptoms Reported Respiratory: Denies: Cough, Shortness of Breath Cardiac: Reports: Edema - Left lower extremity. Denies: Chest Pain, Palpitations Abdominal: Reports: No Symptoms Reported Genitourinary Symptoms: Reports: No Symptoms Reported Musculoskeletal Complaints: Reports: Joint Pain, Joint Swelling, Muscle Pain. Denies: Back Pain Neurological: Reports: No Symptoms Reported Skin: Reports: No Symptoms Reported - Vitals Vitals: Last Vital Signs Temp 35.7 C L 07/08/18 11:39 Pulse 86 07/08/18 11:39 Resp 16 07/08/18 11:39 BP 116/65 07/08/18 11:39 Pulse Ox 93 07/08/18 11:39 - Abnormal Lab Findings Abnormal Lab Findings: Abnormal Lab Results 07/07/18 07/08/18 07/08/18 Range/Units 06:40 05:27 05:27 RBC 1.95 L (4.2-5.4) M/mm3 Hgb 6.3 L* D (12.5-16.0) gm/dL Hct 19.6 L* D (37.0-47.0) % MCV 100.5 H (78-100) fl MCH 32.3 H (27-31) pg RDW 17.1 H (11.5-14.0) % Plt Count 83 L (150-450) K/mm3 BUN 29 H (3-23) mg/dL Est GFR (Non-Af Amer) 45 L D (60-130) mL/min BUN/Creatinine Ratio 24.0 H (9.0-21.6) Random Glucose 114 H D (70-110) mg/dL Alkaline Phosphatase 233 H (50-170) U/L Total Protein 4.6 L (6.2-8.2) gm/dL Albumin 1.8 L (3.4-5.0) gm/dl Procalcitonin (0.05-0.50) ng/mL Crossmatch See Detail 07/08/18 Range/Units 08:39 RBC (4.2-5.4) M/mm3 Hgb (12.5-16.0) gm/dL Hct (37.0-47.0) % MCV (78-100) fl MCH (27-31) pg RDW (11.5-14.0) % Plt Count (150-450) K/mm3 BUN (3-23) mg/dL Est GFR (Non-Af Amer) (60-130) mL/min BUN/Creatinine Ratio (9.0-21.6) Random Glucose (70-110) mg/dL Alkaline Phosphatase (50-170) U/L Total Protein (6.2-8.2) gm/dL Albumin (3.4-5.0) gm/dl Procalcitonin 1.03 H (0.05-0.50) ng/mL Crossmatch - Exam Constitutional: Present: Alert, Oriented x3, Cooperative, No distress ENT Exam: Present: hearing grossly normal. Absent: nasal drainage Neck: Present: non-tender, supple Respiratory: Present: lungs clear, normal breath sounds Cardiovascular/Chest: Present: normal peripheral pulses, regular rate, rhythm, edema - Minimal edema left lower extremity Abdomen: Present: Normal bowel sounds, soft, nontender /Rectal: Present: Exam deferred Extremity: Present: normal capillary refill, leg pain. Absent: normal range of motion - Untested due to recent surgery Skin Exam: Present: normal color, warm/dry Appearance: Present: appropriate appearance, appropriate insight Eye contact: Present: cooperative, good eye contact Thoughts: Present: normal thought pattern, normal mood /affect Cauti Physician Documentation - Urinary Catheter Management Urethral (Lafleur) Date of Insertion: 07/07/17 Time of Insertion: 17:00 Date of Removal: 07/08/18 Time of Removal: 14:45 Assessment/Plan Plan Narrative: Postop day 1pain well controlled. Patient to start physical therapy tomorrow since she was unable to tolerate it today due to blood loss as well as hypothermia, both of these have resolved. Anemia of chronic disease/acute blood loss anemiapatient was transfused a unit of blood today, hemoglobin responded from 6.3-8.9. Patient states that she felt much better. Blood sugars within normal limits, will restart her home medications for diabetic treatment. Continue to monitor Other than the decreased temperature patient has had stable vital signs including regular heart rate and pressures. Satting well on room air. Patient started on consistent carb diet. Patient currently has SCDs on for DVT preventative. She will likely be started on blood thinner soon and these can be removed. Nurse to call with any questions or concerns - Problems/Diagnosis (1) Status post hip hemiarthroplasty Problem: Acute (2) Left displaced femoral neck fracture Problem: Acute (3) Left hip pain Problem: Acute (4) Acute blood loss anemia Problem: Acute (5) Anemia of chronic disease Problem: Chronic (6) CKD (chronic kidney disease) stage 3, GFR 30-59 ml/min Problem: Chronic (7) Diabetes Problem: Chronic Qualifiers: Diabetes mellitus type: type 2
[2018-07-08 15:38] LABS: Hematocrit 26.7 % (37.0-47.0); Hemoglobin 8.9 gm/dL (12.5-16.0); Mean Corpuscular Hemoglobin 31.7 pg (27-31); Mean Corpuscular Hgb Conc 33.3 g/dl (32-36); Platelet Count 102 K/mm3 (150-450); Red Blood Count 2.81 M/mm3 (4.2-5.4); Red Cell Distribution Width 16.6 % (11.5-14.0); White Blood Count 7.7 K/mm3 (4.0-10.5)
[2018-07-08] MEDS: ENOXAPARIN SODIUM 30 MG/0.3 ML SYRG SC SCH (17:42)
[2018-07-08] MEDS: ACETAMINOPHEN 500 MG TABLET PO SCH ×2 (18:50→23:05)
[2018-07-08] MEDS ORDERED: CARVEDILOL 6.25 MG TABLET PO SCH (21:00)
[2018-07-08] MEDS ORDERED: ROSUVASTATIN CALCIUM 10 MG TABLET PO SCH (21:00)
[2018-07-08] MEDS: ROSUVASTATIN CALCIUM 20 MG TABLET PO SCH (21:51)
[2018-07-08] MEDS: metFORMIN HCL 500 MG TABLET PO SCH (21:52)
[2018-07-08] MEDS: SENNOSIDES/DOCUSATE SODIUM 1 TAB TABLET PO SCH (21:53)
[2018-07-09] MEDS: ACETAMINOPHEN 500 MG TABLET PO SCH ×6 (03:15→22:29)
[2018-07-09 06:15] LABS: Mean Cell Volume 95.4 fl (78-100); Mean Corpuscular Hemoglobin 31.2 pg (27-31); Mean Corpuscular Hgb Conc 32.7 g/dl (32-36); Mean Platelet Volume 10.6 fl (8-12.5); Neutrophil # 8.2 K/mm3 (1.3-6.0); Neutrophil % 78.5 % (42-75.0); Platelet Count 117 K/mm3 (150-450); Red Blood Count 2.37 M/mm3 (4.2-5.4); Red Cell Distribution Width 17.1 % (11.5-14.0); White Blood Count 10.4 K/mm3 (4.0-10.5)
[2018-07-09 06:25] LABS: Anion Gap 12.2 mmol/L (6.8-13.8); BUN/Creatinine Ratio 19.7 (9.0-21.6); Calcium * 7.5 mg/dL (7.9-10.9); Carbon Dioxide 24.2 mmol/L (24-32.6); Estimated Creat Clear 19.1; Potassium 4.4 mmol/L (3.4-4.6)
[2018-07-09] MEDS ORDERED: NORMAL SALINE 1,000 ML IV ONE (06:31)
[2018-07-09 06:38] LABS: Hematocrit 22.6 % (37.0-47.0); Hemoglobin 7.4 gm/dL (12.5-16.0)
[2018-07-09] MEDS: INSULIN REGULAR, HUMAN 100 UNITS/ML VIAL SC SCH ×4 (07:00→22:26)
[2018-07-09] MEDS ORDERED: LISINOPRIL 20 MG TABLET PO SCH (09:00)
[2018-07-09] MEDS ORDERED: ALLOPURINOL 300 MG TABLET PO SCH (09:00)
[2018-07-09] MEDS: PANTOPRAZOLE SODIUM 20 MG TABLET.DR PO SCH ×2 (10:04→22:30)
[2018-07-09] MEDS: MAGNESIUM 30 MG PO SCH (10:05)
[2018-07-09] MEDS: ASCORBIC ACID 500 MG TABLET PO SCH (10:05)
[2018-07-09] MEDS: metFORMIN HCL 500 MG TABLET PO SCH ×2 (10:05→22:30)
[2018-07-09] MEDS: MAGNESIUM OXIDE 400 MG TABLET PO SCH (10:05)
[2018-07-09] MEDS: ALLOPURINOL 300 MG TABLET PO SCH (10:06)
[2018-07-09] MEDS: VITAMIN B COMP W-C 1 TAB TABLET PO SCH (10:06)
[2018-07-09] MEDS: NORMAL SALINE 1,000 ML IV PRN ×2 (10:15→22:38)
[2018-07-09] MEDS: NOREPINEPHRINE BITARTRATE 4 MG in DEXTROSE 5 % IN WATER 500 ML IV PRN ×2 (10:15)
[2018-07-09 10:42] LABS: Hemoglobin 8.4 gm/dL (12.5-16.0)
[2018-07-09] MEDS: CHOLECALCIFEROL 1,000 UNIT CAPSULE PO SCH (12:10)
--- NOTE | 2018-07-09 12:39 | PN ---
Subjective - Date and Time Seen Date: 07/09/18 Time: 07:55 Subjective Narrative: Worsening mentation overnight. Patient has been slightly hypothermic as well as hypotensive. Hemoglobin again low this morning, 8.9 down to 7.4. Patient slightly confused but able to redirect back to answering questions appropriately. Right arm swelling has worsened as well as ecchymosis. Left hip bandage clean dry and intact, minimal bruising seen today. Objective - Review of Systems Generalized/Overall Review: Reports: Weakness. Denies: Chills, Fever EENTM: Reports: No Symptoms Reported Respiratory: Denies: Cough, Shortness of Breath Cardiac: Denies: Chest Pain, Edema, Palpitations Abdominal: Denies: Nausea, Vomiting Genitourinary Symptoms: Reports: No Symptoms Reported Musculoskeletal Complaints: Reports: Joint Pain, Joint Swelling - Left hip, Muscle Pain - Right arm/shoulder. Denies: Back Pain Skin: Reports: Bruising - Right shoulder down to right wrist and into anterior chest wall - Vitals Vitals: Last Vital Signs Temp 36 C 07/09/18 09:38 Pulse 101 H 07/09/18 12:00 Resp 14 07/09/18 12:00 BP 98/45 07/09/18 12:00 Pulse Ox 100 07/09/18 12:00 - Abnormal Lab Findings Abnormal Lab Findings: Abnormal Lab Results 07/07/18 07/08/18 07/09/18 Range/Units 06:40 15:27 06:00 RBC 2.81 L 2.37 L (4.2-5.4) M/mm3 Hgb 8.9 L 7.4 L* (12.5-16.0) gm/dL Hct 26.7 L 22.6 L* (37.0-47.0) % MCH 31.7 H 31.2 H (27-31) pg RDW 16.6 H 17.1 H (11.5-14.0) % Plt Count 102 L 117 L (150-450) K/mm3 Immature Gran % (Auto) 0.80 H (0.001-0.429) % Immature Gran # (Auto) 0.08 H (0.000-0.0310) K/mm3 Neutrophils % 78.5 H (42-75.0) % Lymphocytes % 11.2 L (20-51) % Neutrophils # 8.2 H (1.3-6.0) K/mm3 Lymphocytes # 1.17 L (1.5-3.5) k/mm3 BUN (3-23) mg/dL Creatinine (0.4-1.4) mg/dL Est GFR (Non-Af Amer) (60-130) mL/min Calcium (7.9-10.9) mg/dL Crossmatch See Detail 07/09/18 07/09/18 Range/Units 06:00 10:35 RBC (4.2-5.4) M/mm3 Hgb 8.4 L (12.5-16.0) gm/dL Hct 25.0 L (37.0-47.0) % MCH (27-31) pg RDW (11.5-14.0) % Plt Count (150-450) K/mm3 Immature Gran % (Auto) (0.001-0.429) % Immature Gran # (Auto) (0.000-0.0310) K/mm3 Neutrophils % (42-75.0) % Lymphocytes % (20-51) % Neutrophils # (1.3-6.0) K/mm3 Lymphocytes # (1.5-3.5) k/mm3 BUN 30 H (3-23) mg/dL Creatinine 1.52 H (0.4-1.4) mg/dL Est GFR (Non-Af Amer) 34 L D (60-130) mL/min Calcium 7.5 L (7.9-10.9) mg/dL Crossmatch - Exam Constitutional: Present: Alert, Oriented x3, Somnolent, Elderly Neck: Present: full range of motion, supple Respiratory: Present: lungs clear, normal breath sounds, no respiratory distress Cardiovascular/Chest: Present: normal peripheral pulses, regular rate, rhythm Abdomen: Present: Normal bowel sounds, soft, nontender Extremity: Present: normal range of motion - Normal range of motion right arm though painful with movement, lower extremity edema - Left lower extremity, minimal Skin Exam: Absent: normal color - Ecchymosis down right arm from shoulder to wrist, also down anterior chest lateral to the breast Appearance: Present: impaired insight, impaired recent memory Eye contact: Present: cooperative, good eye contact Thoughts: Present: incoherent - At times, normal mood /affect Cauti Physician Documentation - Urinary Catheter Management Urethral (Lafleur) Urethral Indwelling: Yes Reason for Continuing Indwelling Catheter: Acute urinary retention - Replaced today 07/09 Date of Insertion: 07/07/17 Time of Insertion: 17:00 Date of Removal: 07/08/18 Time of Removal: 14:45 Assessment/Plan Plan Narrative: Post op day 2 status post left femur hemiarthroplasty- pain well controlled, dressing clean dry and intact. Minimal ecchymosis around incision. Acute but blood loss anemiapatient hemoglobin this morning was 7.4. Will transfuse 1 more unit, give her a bolus of 1 L normal saline due to hypotension. If patient continues to have issues with blood pressures will transfer to the unit and start her on levophed. If this happens patient will likely need central line placed at some point today as she has 2 peripheral lines that should not be used more than 4 to 6 hours at a time. Patient's family notified of her being moved to the unit for possible vasopressor administration. Son again reaffirmed that she is a DNR and only symptomatic treatment should be used at this time for her. Patient has become more somnolent and hard to arouse at times, concerned with her clinical picture. Blood pressures have been in the 70s over 30s, 80s over 30s for most of the morning. If levophed is started will, will set parameters of a systolic pressure greater than 90 with a map of greater than 65. Repeat hemogram 2-hour status post completion of blood transfusion. Blood sugars well controlled, continue current treatment plan for diabetes. Patient tolerating p.o. - Problems/Diagnosis (1) Status post hip hemiarthroplasty Problem: Acute (2) Left displaced femoral neck fracture Problem: Acute (3) Left hip pain Problem: Acute (4) Acute blood loss anemia Problem: Acute (5) Anemia of chronic disease Problem: Chronic (6) CKD (chronic kidney disease) stage 3, GFR 30-59 ml/min Problem: Chronic (7) Diabetes Problem: Chronic Qualifiers: Diabetes mellitus type: type 2 (8) Hypotension Problem: Acute (9) Encounter for central line placement Problem: Acute
--- NOTE | 2018-07-09 16:01 | PN ---
Subjective - Date and Time Seen Date: 07/09/18 Time: 15:58 Subjective Narrative: The patient was evaluated for ultrasound inserted PICC line. Ultrasound visualization of the left arm revealed no adequate venous access for PICC line placement. The only visualized vessel was a brachial artery. Objective - Vitals Vitals: Last Vital Signs Temp 36 C 07/09/18 09:38 Pulse 109 H 07/09/18 14:00 Resp 14 07/09/18 14:00 BP 114/54 07/09/18 14:00 Pulse Ox 99 07/09/18 14:00 - Abnormal Lab Findings Abnormal Lab Findings: Abnormal Lab Results 07/07/18 07/09/18 07/09/18 Range/Units 06:40 06:00 06:00 RBC 2.37 L (4.2-5.4) M/mm3 Hgb 7.4 L* (12.5-16.0) gm/dL Hct 22.6 L* (37.0-47.0) % MCH 31.2 H (27-31) pg RDW 17.1 H (11.5-14.0) % Plt Count 117 L (150-450) K/mm3 Immature Gran % (Auto) 0.80 H (0.001-0.429) % Immature Gran # (Auto) 0.08 H (0.000-0.0310) K/mm3 Neutrophils % 78.5 H (42-75.0) % Lymphocytes % 11.2 L (20-51) % Neutrophils # 8.2 H (1.3-6.0) K/mm3 Lymphocytes # 1.17 L (1.5-3.5) k/mm3 BUN 30 H (3-23) mg/dL Creatinine 1.52 H (0.4-1.4) mg/dL Est GFR (Non-Af Amer) 34 L D (60-130) mL/min Calcium 7.5 L (7.9-10.9) mg/dL Crossmatch See Detail 07/09/18 Range/Units 10:35 RBC (4.2-5.4) M/mm3 Hgb 8.4 L (12.5-16.0) gm/dL Hct 25.0 L (37.0-47.0) % MCH (27-31) pg RDW (11.5-14.0) % Plt Count (150-450) K/mm3 Immature Gran % (Auto) (0.001-0.429) % Immature Gran # (Auto) (0.000-0.0310) K/mm3 Neutrophils % (42-75.0) % Lymphocytes % (20-51) % Neutrophils # (1.3-6.0) K/mm3 Lymphocytes # (1.5-3.5) k/mm3 BUN (3-23) mg/dL Creatinine (0.4-1.4) mg/dL Est GFR (Non-Af Amer) (60-130) mL/min Calcium (7.9-10.9) mg/dL Crossmatch Cauti Physician Documentation - Urinary Catheter Management Urethral (Lafleur) Date of Insertion: 07/09/18 Time of Insertion: 15:40 Date of Removal: 07/08/18 Time of Removal: 14:45
[2018-07-09] MEDS: ENOXAPARIN SODIUM 30 MG/0.3 ML SYRG SC SCH (17:06)
--- NOTE | 2018-07-09 18:37 | OR ---
Operative Report - Dictated Report Narrative: Date of Service: 07/09/18 Procedure: Right IJ central venous line with ultrasound guidance Pre-procedure diagnosis: Hypotension Post-procedure diagnosis: Same Surgeon: Dr. Leisa Francisco Anesthesia: Local Indication for procedure: Patient is on only Levophed drip, and only has peripheral IVs. A PICC line was attempted but was unsuccessful. Description of procedure: After appropriate informed consent was obtained, the patient was prepped and draped in the usual sterile fashion. Ultrasound guidance was used to visualize the right internal jugular vein. The vein collapsed easily. Local anesthetic was injected above the vein. Cook needle was inserted into the vein. The wire was thread into the Cook needle easily. The Cook needle was removed and the dilator sheath was placed, after making a small skin neck. The catheter was then examined. It was a double lumen. It was very long, it was trimmed at 20 cm. The catheter was flushed. The catheter was threaded over the wire using Seldinger technique. The catheter was then sutured in place. The wound was cleansed with chlorhexidine, and a Tegaderm was applied. The patient tolerated the procedure well with no immediate complications. Complications: none Specimens to pathology: none Estimated blood loss: Minimal Disposition: We will obtain a postprocedure chest x-ray.
[2018-07-09] MEDS: ROSUVASTATIN CALCIUM 20 MG TABLET PO SCH (22:30)
[2018-07-09] MEDS: SENNOSIDES/DOCUSATE SODIUM 1 TAB TABLET PO SCH (22:31)
[2018-07-10] MEDS: NOREPINEPHRINE BITARTRATE 4 MG in DEXTROSE 5 % IN WATER 500 ML IV PRN ×4 (00:32→09:10)
[2018-07-10] MEDS: ACETAMINOPHEN 500 MG TABLET PO SCH ×6 (02:57→23:43)
[2018-07-10 07:41] LABS: Mean Cell Volume 97.3 fl (78-100); Mean Corpuscular Hgb Conc 32.9 g/dl (32-36); Platelet Count 181 K/mm3 (150-450); Red Blood Count 2.25 M/mm3 (4.2-5.4); Red Cell Distribution Width 16.9 % (11.5-14.0); White Blood Count 16.7 K/mm3 (4.0-10.5)
[2018-07-10 07:44] LABS: Hematocrit 21.9 % (37.0-47.0); Hemoglobin 7.2 gm/dL (12.5-16.0)
[2018-07-10 07:48] LABS: BUN/Creatinine Ratio 19.3 (9.0-21.6); Carbon Dioxide 21.9 mmol/L (24-32.6); Potassium 3.9 mmol/L (3.4-4.6)
[2018-07-10] MEDS: INSULIN REGULAR, HUMAN 100 UNITS/ML VIAL SC SCH ×4 (08:03→21:02)
[2018-07-10] MEDS: PANTOPRAZOLE SODIUM 20 MG TABLET.DR PO SCH ×2 (10:06→21:03)
[2018-07-10] MEDS: ALLOPURINOL 300 MG TABLET PO SCH (10:06)
[2018-07-10] MEDS: ASCORBIC ACID 500 MG TABLET PO SCH (10:06)
[2018-07-10] MEDS: MAGNESIUM OXIDE 400 MG TABLET PO SCH (10:06)
[2018-07-10] MEDS: VITAMIN B COMP W-C 1 TAB TABLET PO SCH (10:06)
[2018-07-10] MEDS: MAGNESIUM 30 MG PO SCH (10:06)
[2018-07-10] MEDS: CHOLECALCIFEROL 1,000 UNIT CAPSULE PO SCH (11:43)
--- NOTE | 2018-07-10 13:04 | PN ---
Subjective - Date and Time Seen Date: 07/10/18 Time: 12:46 Objective Objective Narrative: Patient is comfortable, resting in bed. Denies any pain. Continued requirement of Levophed to maintain blood pressures, currently at 8.5 mcg. Hemoglobin dropped down to 7.2 despite receiving 4 units of blood post surgery. She is having minimal urine output, Lafleur has been placed. - Review of Systems Generalized/Overall Review: Reports: Fatigue. Denies: Chills, Fever EENTM: Reports: No Symptoms Reported Respiratory: Denies: Cough, Shortness of Breath Cardiac: Denies: Chest Pain, Edema, Palpitations Abdominal: Denies: Nausea, Vomiting Genitourinary Symptoms: Reports: No Symptoms Reported Musculoskeletal Complaints: Denies: Joint Pain, Muscle Pain Neurological: Reports: No Symptoms Reported Skin: Reports: Other - bruising, right arm - Vitals Vitals: Last Vital Signs Temp 36.6 C 07/10/18 12:00 Pulse 98 07/10/18 12:00 Resp 16 07/10/18 12:00 BP 102/47 07/10/18 12:00 Pulse Ox 100 07/10/18 12:00 - Abnormal Lab Findings Abnormal Lab Findings: Abnormal Lab Results 07/10/18 07/10/18 Range/Units 07:10 07:10 WBC 16.7 H D (4.0-10.5) K/mm3 RBC 2.25 L (4.2-5.4) M/mm3 Hgb 7.2 L* (12.5-16.0) gm/dL Hct 21.9 L* (37.0-47.0) % MCH 32.0 H (27-31) pg RDW 16.9 H (11.5-14.0) % Carbon Dioxide 21.9 L (24-32.6) mmol/L Anion Gap 14.0 H (6.8-13.8) mmol/L BUN 33 H (3-23) mg/dL Creatinine 1.71 H (0.4-1.4) mg/dL Est GFR (Non-Af Amer) 30 L (60-130) mL/min Random Glucose 142 H D (70-110) mg/dL Calcium 7.0 L (7.9-10.9) mg/dL - Exam Constitutional: Present: Alert, Oriented x3, Somnolent, Elderly Neck: Present: non-tender, supple Respiratory: Present: lungs clear, normal breath sounds Cardiovascular/Chest: Present: regular rate, rhythm, edema - minimal lower extremity edema Abdomen: Present: Normal bowel sounds, soft, nontender Extremity: Present: lower extremity edema - left LE- minimal, leg pain - left leg with movement. Absent: normal inspection - pain with movement of right arm Skin Exam: Present: other - Significant ecchymosis right arm and right anterior andlateral chest wall Appearance: Present: appropriate insight, disheveled Eye contact: Present: cooperative, good eye contact Thoughts: Present: normal thought pattern, normal mood /affect Cauti Physician Documentation - Urinary Catheter Management Urethral (Lafleur) Urethral Indwelling: Yes Date of Insertion: 07/09/18 Time of Insertion: 15:45 Date of Removal: 07/08/18 Time of Removal: 14:45 Assessment/Plan Plan Narrative: Post op day 3 status post left femur hemiarthroplasty- pain well controlled, dressing clean dry and intact. Minimal ecchymosis around incision. Acute but blood loss anemiapatient hemoglobin this morning was 7.2 despite being transfused 4 units since surgery. Patient now requiring Levophed to maintain MAP greater than 65, have to increase a dose of and for this. Levophed being administered through central line placed by general surgery yesterday. Patient has become more somnolent and hard to arouse at times, concerned with her clinical picture. I do not feel like her blood loss anemia is a result of her surgery, I think there is an injury in her right upper extremity that is causing this that likely happened prior to hospitalization. Kidney function slowly deteriorating with decreased blood pressures. She likely needs an MRA of her right upper extremity but I do not think her kidneys will tolerate the contrast. Even more so if an MRA was obtained and showed damage to a vessel I doubt her blood pressures would tolerate being put under general sedation for repair. Had a meeting with the family this morning including her son, Her 2 daughters, their spouses, and her brother who are all in agreement with comfort measure treatment only at this time. Her son Nickolas has POA. Currently holding all meds that are not comfort related. Hospice will be consulted. - Problems/Diagnosis (1) Hypotension Problem: Acute (2) Acute blood loss anemia Problem: Acute (3) Status post hip hemiarthroplasty Problem: Acute (4) CKD (chronic kidney disease) stage 3, GFR 30-59 ml/min Problem: Chronic (5) Left displaced femoral neck fracture Problem: Acute (6) Left hip pain Problem: Acute (7) Anemia of chronic disease Problem: Chronic (8) Diabetes Problem: Chronic Qualifiers: Diabetes mellitus type: type 2 (9) Encounter for central line placement Problem: Acute
[2018-07-10] MEDS ORDERED: ATROPINE SULFATE 150 DROP BTL EACHEYE PRN (13:39)
[2018-07-10] MEDS ORDERED: ATROPINE SULFATE 150 DROP BTL SL PRN (13:56)
[2018-07-10] MEDS: NORMAL SALINE 1,000 ML IV PRN (14:10)
[2018-07-10] MEDS: ENOXAPARIN SODIUM 30 MG/0.3 ML SYRG SC SCH (16:10)
[2018-07-10] MEDS: SENNOSIDES/DOCUSATE SODIUM 1 TAB TABLET PO SCH (21:03)
[2018-07-10] MEDS: ROSUVASTATIN CALCIUM 20 MG TABLET PO SCH (21:03)
[2018-07-11] MEDS: DIAZEPAM 5 MG/ML SYRG IV PRN ×4 (04:18→14:45)
[2018-07-11] MEDS: ACETAMINOPHEN 500 MG TABLET PO SCH ×2 (04:34→07:01)
[2018-07-11 05:19] LABS: Anion Gap 14.7 mmol/L (6.8-13.8); BUN/Creatinine Ratio 18.8 (9.0-21.6); Calcium * 6.7 mg/dL (7.9-10.9); Carbon Dioxide 21.3 mmol/L (24-32.6); Estimated Creat Clear 15.2
[2018-07-11 06:04] LABS: Hematocrit 18.7 % (37.0-47.0); Hemoglobin 6.3 gm/dL (12.5-16.0)
[2018-07-11] MEDS: MORPHINE SULFATE 2 MG/ML DISP.SYRIN IV PRN ×3 (06:19→12:39)
[2018-07-11] MEDS: INSULIN REGULAR, HUMAN 100 UNITS/ML VIAL SC SCH (07:01)
[2018-07-11] MEDS: PANTOPRAZOLE SODIUM 20 MG TABLET.DR PO SCH (07:01)
[2018-07-11] MEDS: ALLOPURINOL 300 MG TABLET PO SCH (08:12)
[2018-07-11] MEDS: VITAMIN B COMP W-C 1 TAB TABLET PO SCH (08:12)
[2018-07-11] MEDS: ASCORBIC ACID 500 MG TABLET PO SCH (08:12)
[2018-07-11] MEDS: MAGNESIUM 30 MG PO SCH (08:12)
[2018-07-11] MEDS: MAGNESIUM OXIDE 400 MG TABLET PO SCH (08:12)
--- NOTE | 2018-07-11 10:48 | PN ---
Subjective - Date and Time Seen Date: 07/11/18 Time: 09:10 Subjective Narrative: Patient currently sleeping comfortably in her bed. Was agitated overnight. Continues to communicate with family members. Unwilling to eat or drink much. Kidney function continues to deteriorate, hemoglobin continues to drop. Interestingly enough though her blood pressure stabilized after stopping the Levophed. Objective Objective Narrative: Review of systems unable to obtain other than patient states that she feels well - Vitals Vitals: Last Vital Signs Temp 36.4 C 07/11/18 03:00 Pulse 100 07/11/18 03:00 Resp 20 07/11/18 03:00 BP 90/57 07/11/18 03:00 Pulse Ox 100 07/11/18 03:00 - Abnormal Lab Findings Abnormal Lab Findings: Abnormal Lab Results 07/07/18 07/11/18 07/11/18 Range/Units 06:40 05:05 05:05 Hgb 6.3 L* (12.5-16.0) gm/dL Hct 18.7 L* (37.0-47.0) % Carbon Dioxide 21.3 L (24-32.6) mmol/L Anion Gap 14.7 H (6.8-13.8) mmol/L BUN 36 H (3-23) mg/dL Creatinine 1.91 H (0.4-1.4) mg/dL Est GFR (Non-Af Amer) 26 L (60-130) mL/min Calcium 6.7 L (7.9-10.9) mg/dL Crossmatch See Detail - Exam Exam Narrative: Minimal exam performed today as patient has been made comfort measures only and hospice has been consulted. Constitutional: Present: Elderly. Absent: Alert, Oriented x3 Cauti Physician Documentation - Urinary Catheter Management Urethral (Lafleur) Urethral Indwelling: Yes Date of Insertion: 07/09/18 Time of Insertion: 15:45 Date of Removal: 07/08/18 Time of Removal: 14:45 Assessment/Plan Plan Narrative: Patient currently made comfort measures only at this time, chronic medications discontinued. Hospice has been consulted. Morphine and Valium ordered to be used as needed. Patient currently resting comfortably in her bed, no longer agitated once Valium was given. We will no longer check any lab work or vital signs. All her family members have been by to see her. They are adamant that no further work-up or treatment be provided for her at this time. Her kidney function continues to deteriorate and her hemoglobin continues to drop. Her clinical picture is consistent with her actively dying, will keep her comfortable. Nurse to call me with any questions or concerns. - Problems/Diagnosis (1) Hypotension Problem: Acute (2) Acute blood loss anemia Problem: Acute (3) Status post hip hemiarthroplasty Problem: Acute (4) CKD (chronic kidney disease) stage 3, GFR 30-59 ml/min Problem: Chronic (5) Left displaced femoral neck fracture Problem: Acute (6) Left hip pain Problem: Acute (7) Anemia of chronic disease Problem: Chronic (8) Diabetes Problem: Chronic Qualifiers: Diabetes mellitus type: type 2 (9) Encounter for central line placement Problem: Acute (10) Hospice care Problem: Acute
--- NOTE | 2018-07-12 07:55 | PN ---
Subjective - Date and Time Seen Date: 07/12/18 Time: 07:52 Subjective Narrative: Subjective: Sleeping in bed, arousable. Reports no significant complaints. Continued post-operative anemia. Pain is well-controlled. Catheter in place. Tolerating by mouth intake. Physical exam: Alert and oriented to person, place and time Left lower Extremity: Palpable dorsalis pedis pulse. Sensation grossly intact to light touch. Dressings clean and dry. Able to flex and extend ankle and toes. No excessive drainage. Calf and thigh are soft and nontender. Swelling but not tense in left leg Right upper extremity - noted bruising, moving arm with little pain, sensation intact to light touch Assessment: Postop day 4 status post left hip arabella-arthroplasty. Plan: Continue with physical and occupational therapy weightbearing as tolerated. Agree with hold anticoagulation due to ongoing anemia. Pain control with goal to rely on oral medications. Continue bowel regimen. Will need 6 weeks with walker or assitive device to protect joint while ambulating during the recovery process. No additional recommendations at this time. Continue to assist with recovery. She is to keep her wound clean and dry and cover with dry gauze. Objective - Vitals Vitals: Last Vital Signs Temp 36.4 C 07/11/18 03:00 Pulse 100 07/11/18 03:00 Resp 20 07/11/18 03:00 BP 90/57 07/11/18 03:00 Pulse Ox 100 07/11/18 03:00 Cauti Physician Documentation - Urinary Catheter Management Urethral (Lafleur) Urethral Indwelling: Yes Date of Insertion: 07/09/18 Time of Insertion: 15:45 Date of Removal: 07/08/18 Time of Removal: 14:45 Assessment/Plan - Problems/Diagnosis (1) Acute blood loss anemia Problem: Acute (2) Status post hip hemiarthroplasty Problem: Acute (3) Left displaced femoral neck fracture Problem: Acute
--- NOTE | 2018-07-12 14:16 | PN ---
Subjective - Date and Time Seen Date: 07/12/18 Time: 13:57 Subjective Narrative: Patient is sleeping but arousable, she denies excessive pain. Objective Objective Narrative: 88-year-old female status post left hemiarthroplasty day #5 was evaluated at bedside and was found to be afebrile and in no acute distress, however patient continues to be any critical condition due to her declining renal function and postop anemia despite receiving multiple blood transfusions. Patient has been weaned off of vasopressors after which initially she was maintaining her BP but at the moment she is found to be hypotensive with a map hovering around 55-[address]. [address] patient in hospice care with only comfort measures was taken by family members and medical staff 2 days ago. However during today's evaluation patient was found to be more alert than previous days and did not demonstrate any hallucinations or aggression, in fact she appeared lucid during bedside evaluation and was able to demonstrate orientation and time and place. However she could not recall why she was in the hospital. Patient's son expresses desire to have his mother placed on a comfort measures where she is made as comfortable as possible. He declines any surgical intervention for repair of possible bleeding extremity and upper thorax or any other medical treatment. Therefore follow-up labs has not been ordered since yesterday but orders to continue checking vitals were restarted today to monitor for hypertension. Physical therapy to transfer patient from bed to chair was reported per the orthopedic surgeons recommendations. For now patient remains in critical condition and arrangements to possibly discharge to a care facility with nursing care are being made by case technician. We will continue to monitor her closely. - Review of Systems Generalized/Overall Review: Reports: Weakness EENTM: Reports: No Symptoms Reported Respiratory: Reports: No Symptoms Reported Cardiac: Reports: No Symptoms Reported Abdominal: Reports: No Symptoms Reported Genitourinary Symptoms: Reports: No Symptoms Reported Musculoskeletal Complaints: Reports: Joint Pain, Joint Swelling Neurological: Reports: No Symptoms Reported Skin: Reports: No Symptoms Reported Endocrine: Reports: No Symptoms Reported - Vitals Vitals: Last Vital Signs Temp 35.5 C L 07/12/18 11:10 Pulse 85 07/12/18 11:10 Resp 12 07/12/18 11:10 BP 92/40 07/12/18 11:10 Pulse Ox 98 07/12/18 11:10 - Exam Constitutional: Present: Alert, Cooperative, Well developed, Well nourished, No distress, Lethargic, Somnolent, Elderly, Looks Older than stated age ENT Exam: Present: normal ENT inspection, hearing grossly normal, pharynx normal, TMs normal Neck: Present: non-tender, full range of motion, supple, normal inspection, trachea midline Breasts: Present: Exam deferred Respiratory: Present: chest non-tender, lungs clear, normal breath sounds, no respiratory distress, no accessory muscle use Cardiovascular/Chest: Present: normal peripheral pulses, regular rate, rhythm, no chest tenderness, no edema, no gallop, no JVD Abdomen: Present: Normal bowel sounds, soft, nontender, no rebound tenderness, no hepatospenomegaly, distended - Mild abdominal distention /Rectal: Present: Exam deferred Extremity: Present: non-tender, no pedal edema, no calf tenderness, leg pain, swelling - Right upper extremity swelling, other - Right upper extremity edema with large ecchymosis extending from right upper thorax and right flank down to her right hand. Left hip covered by clean dry bandage. Skin Exam: Present: warm/dry Lymphatic: Present: no adenopathy Neurologic: Present: other - Patient somnolent but arousable oriented x2 Appearance: Present: neat, impaired insight, impaired recent memory Eye contact: Present: cooperative, good eye contact Thoughts: Present: normal thought pattern, no apparent hallucination Cauti Physician Documentation - Urinary Catheter Management Urethral (Lafleur) Urethral Indwelling: Yes Date of Insertion: 07/09/18 Time of Insertion: 15:45 Date of Removal: 07/08/18 Time of Removal: 14:45 Assessment/Plan Plan Narrative: After evaluation the patient decision to continue comfort measures with periodic vital signs checks was taken. No treatment will be administered to patient her her power of employee benefits attorney and medical proxy's request. Patient will be made as comfortable as possible with analgesics and anxiolytics. Position transfer from bed to chair we will continue as tolerated by patient. lead care manager is arranging discharge planning to a care facility with nursing care. We will continue to monitor her closely. - Problems/Diagnosis (1) Left hip pain Problem: Acute (2) Left displaced femoral neck fracture Problem: Acute (3) Diabetes Problem: Chronic Qualifiers: Diabetes mellitus type: type 2 (4) Anemia of chronic disease Problem: Chronic (5) Acute kidney injury superimposed on CKD Problem: Acute (6) Comfort measures only status Problem: Acute (7) History of hemiarthroplasty of left hip Problem: Acute
[2018-07-13] MEDS ORDERED: NORMAL SALINE 1,000 ML IV ONE (09:58)
[2018-07-13 10:00] LABS: Mean Cell Volume 96.4 fl (78-100); Mean Corpuscular Hemoglobin 32.5 pg (27-31); Mean Corpuscular Hgb Conc 33.7 g/dl (32-36); Mean Platelet Volume 9.4 fl (8-12.5); NRBC# 0.1 k/mm3 (0-1); Neutrophil # 5.4 K/mm3 (1.3-6.0); Neutrophil % 77.3 % (42-75.0); Platelet Count 119 K/mm3 (150-450); Red Blood Count 1.97 M/mm3 (4.2-5.4); Red Cell Distribution Width 16.7 % (11.5-14.0); White Blood Count 6.9 K/mm3 (4.0-10.5)
[2018-07-13 10:07] LABS: Hemoglobin 6.4 gm/dL (12.5-16.0)
[2018-07-13] MEDS ORDERED: FUROSEMIDE 10 MG/ML VIAL IV PRN (10:14)
[2018-07-13] MEDS ORDERED: diphenhydrAMINE HCL 50 MG/ML VIAL IV PRN (10:14)
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
[2018-07-13 10:20] LABS: Albumin * 1.3 gm/dl (3.4-5.0); BUN/Creatinine Ratio 23.1 (9.0-21.6); Bilirubin, Total 2.2 mg/dL (0.0-1.1); Ca. Corrected For Albumin 9.3 mg/dL (8.4-10.2); Calcium * 7.5 mg/dL (7.9-10.9); Carbon Dioxide 22.4 mmol/L (24-32.6); Potassium 4.4 mmol/L (3.4-4.6); Total Protein 4.7 gm/dL (6.2-8.2)
[2018-07-13 19:11] LABS: Hemoglobin 10.1 gm/dL (12.5-16.0)
[2018-07-14 05:49] LABS: Albumin * 1.4 gm/dl (3.4-5.0); Anion Gap 13.5 mmol/L (6.8-13.8); BUN/Creatinine Ratio 23.5 (9.0-21.6); Bilirubin, Total 2.8 mg/dL (0.0-1.1); Ca. Corrected For Albumin 9.8 mg/dL (8.4-10.2); Carbon Dioxide 21.6 mmol/L (24-32.6); Potassium 4.1 mmol/L (3.4-4.6)
--- NOTE | 2018-07-14 08:03 | PN ---
Subjective - Date and Time Seen Date: 07/14/18 Time: 08:00 Subjective Narrative: Subjective: Sitting in chair alert and eating breakfast independently. Reports no significant complaints. Noted generalized peripheral edema. Pain is well- controlled. Catheter in place. Tolerating by mouth intake. Physical exam: Alert and oriented Left lower Extremity: Palpable dorsalis pedis pulse. Sensation grossly intact to light touch. Dressings clean and dry. Edema about left leg. Able to flex and extend ankle and toes. No excessive drainage. Calf and thigh are soft and nontender. Right upper extremity - noted bruising, moving arm with little pain, sensation intact to light touch, Assessment: Postop day 6 status post left hip arabella-arthroplasty. Plan: Continue with physical and occupational therapy weightbearing as tolerated. Her echymosis on her right upper body is likely related to positioning during surgery as well as her anti-platelet medication and anticoagulation. I don't feel there is an active bleed that needs surgical intervention. Pain control with goal to rely on oral medications. Continue bowel regimen. No additional recommendations at this time. Continue to assist with recovery. She is to keep her wound clean and dry and cover with dry gauze. Objective - Vitals Vitals: Last Vital Signs Temp 36.6 C 07/14/18 06:42 Pulse 95 07/14/18 06:42 Resp 18 07/14/18 06:42 BP 119/60 07/14/18 06:42 Pulse Ox 95 07/14/18 06:42 - Abnormal Lab Findings Abnormal Lab Findings: Abnormal Lab Results 07/07/18 07/13/18 07/13/18 Range/Units 06:40 09:50 09:50 RBC 1.97 L (4.2-5.4) M/mm3 Hgb 6.4 L* (12.5-16.0) gm/dL Hct 19.0 L* (37.0-47.0) % MCH 32.5 H (27-31) pg RDW 16.7 H (11.5-14.0) % Plt Count 119 L (150-450) K/mm3 Immature Gran % (Auto) 1.30 H (0.001-0.429) % Immature Gran # (Auto) 0.09 H (0.000-0.0310) K/mm3 Neutrophils % 77.3 H (42-75.0) % Lymphocytes % 11.3 L (20-51) % Lymphocytes # 0.78 L (1.5-3.5) k/mm3 Carbon Dioxide 22.4 L (24-32.6) mmol/L Anion Gap 14.0 H (6.8-13.8) mmol/L BUN 39 H (3-23) mg/dL Creatinine 1.69 H (0.4-1.4) mg/dL Est GFR (Non-Af Amer) 30 L (60-130) mL/min BUN/Creatinine Ratio 23.1 H (9.0-21.6) Random Glucose 154 H D (70-110) mg/dL Calcium 7.5 L (7.9-10.9) mg/dL Total Bilirubin 2.2 H (0.0-1.1) mg/dL AST 121 H (0-48) U/L Alkaline Phosphatase 600 H (50-170) U/L Total Protein 4.7 L (6.2-8.2) gm/dL Albumin 1.3 L (3.4-5.0) gm/dl Crossmatch See Detail 07/13/18 07/13/18 07/14/18 Range/Units 09:50 19:05 05:32 RBC (4.2-5.4) M/mm3 Hgb 10.1 L (12.5-16.0) gm/dL Hct 30.0 L (37.0-47.0) % MCH (27-31) pg RDW (11.5-14.0) % Plt Count (150-450) K/mm3 Immature Gran % (Auto) (0.001-0.429) % Immature Gran # (Auto) (0.000-0.0310) K/mm3 Neutrophils % (42-75.0) % Lymphocytes % (20-51) % Lymphocytes # (1.5-3.5) k/mm3 Carbon Dioxide 21.6 L (24-32.6) mmol/L Anion Gap (6.8-13.8) mmol/L BUN 36 H (3-23) mg/dL Creatinine 1.53 H (0.4-1.4) mg/dL Est GFR (Non-Af Amer) 34 L (60-130) mL/min BUN/Creatinine Ratio 23.5 H (9.0-21.6) Random Glucose 111 H (70-110) mg/dL Calcium (7.9-10.9) mg/dL Total Bilirubin 2.8 H (0.0-1.1) mg/dL AST 133 H (0-48) U/L Alkaline Phosphatase 664 H (50-170) U/L Total Protein 5.0 L (6.2-8.2) gm/dL Albumin 1.4 L (3.4-5.0) gm/dl Crossmatch See Detail Cauti Physician Documentation - Urinary Catheter Management Urethral (Lafleur) Urethral Indwelling: Yes Date of Insertion: 07/09/18 Time of Insertion: 15:45 Date of Removal: 07/08/18 Time of Removal: 14:45 Assessment/Plan - Problems/Diagnosis (1) Acute blood loss anemia Problem: Acute (2) Status post hip hemiarthroplasty Problem: Acute (3) Left displaced femoral neck fracture Problem: Acute
--- NOTE | 2018-07-14 11:29 | DS ---
(1) Left hip pain Problem: Acute (2) Left displaced femoral neck fracture Problem: Resolved (3) Diabetes Problem: Chronic Qualifiers: Diabetes mellitus type: type 2 (4) Anemia of chronic disease Problem: Chronic (5) Acute kidney injury superimposed on CKD Problem: Acute (6) History of hemiarthroplasty of left hip Problem: Acute (7) Injury of right upper extremity Problem: Resolved Description of Stay: 88-year-old female with past medical history of type 2 diabetes, hypertension, old CVA, osteoarthritis, was admitted to our facility for a displaced left femoral neck fracture that required repair with a hemiarthroplasty. Patient underwent the procedure without any reported adverse events and is healing without any problems. She is undergoing physical therapy as well as occupational therapy as ordered by the orthopedic surgeon on the case, and is to continue them at the care facility after discharge. Patient had some complications during her hospitalization, she went into hypotensive shock and was transferred to our special care unit after being placed on vasopressor drip. She also required multiple blood transfusions to deal with postop anemia likely secondary to internal bleeding in her upper extremity that was most likely due to positioning during the surgery and the fact that she is on dual antiplatelet therapy for an old CVA. Patient's family requested that she be placed on comfort measures when the prognosis appeared to worsen, however with treatment with IV fluid and additional PRBC transfusions patient was able to recuperate her BP and her hemoglobin improved to above 10 which is higher than the hemoglobin during admission. This morning patient was evaluated and was found to be in good spirits, she denied pain and is tolerating oral intake without any problems. She has adequate diuresis and her kidney function has returned to its baseline. She was evaluated by the orthopedic surgeon who cleared her for discharge with PT, OT, and weightbearing as tolerated and recommended that patient stays on only the dual antiplatelet therapy specifically Plavix and aspirin and to avoid Lovenox due to high risk of bleeding. We will follow his recommendation and discharge patient to [facility] with PT and OT orders. Patient is to return to my clinic within the next 2 weeks for reevaluation and follow-up with orthopedic department for reevaluation. Procedures Performed: see notes below - Left hemiarthroplasty, placement of subclavian central venous line, insertion of Lafleur catheter List Procedures: Left hemiarthroplasty, insertion of subclavian central venous line, insertion of Lafleur catheter Results and Findings: Lab Pending Results 07/06/18 16:50: WBC 12.4 H, RBC 2.40 L, Hgb 8.2 L, Hct 24.8 L, MCV 103.3 H, MCH 34.2 H, MCHC 33.1, RDW 15.6 H, Plt Count 144 L, MPV 10.9, Immature Gran % (Auto) 0.60 H, Immature Gran # (Auto) 0.07 H, Neutrophils % 82.5 H, Lymphocytes % 8.4 L, Monocytes % 8.1, Eosinophils % 0.2, Basophils % 0.2, Nucleated RBC % 0.0, Neutrophils # 10.2 H, Lymphocytes # 1.04 L, Monocytes # 1.0, Eosinophils # 0.0, Absolute Basophils 0.0 07/06/18 16:50: Sodium 136, Plasma Sodium 138, Potassium 4.5, Chloride 100, Carbon Dioxide 24.5, Anion Gap 16.0 H, BUN 37 H, Creatinine 1.56 H, Est GFR (Non-Af Amer) 33 L, BUN/Creatinine Ratio 23.7 H, Random Glucose 224 H, Calcium 9.6, Calcium Adj for Albumin 10.2, Total Bilirubin 1.8 H, AST 74 H, ALT 55, Alkaline Phosphatase 347 H, Total Protein 6.6, Albumin 2.8 L 07/06/18 16:50: PT 12.6 H, INR (Anticoag Therapy) 1.29 H, PTT ([place]) 35.7 H 07/07/18 06:40: Blood Type O Positive, Antibody Screen Negative, Crossmatch See Detail 07/08/18 05:27: WBC 7.5 D, RBC 1.95 L, Hgb 6.3 L* D, Hct 19.6 L* D, MCV 100.5 H, MCH 32.3 H, MCHC 32.1, RDW 17.1 H, Plt Count 83 L, MPV 10.4 07/08/18 05:27: Sodium 135, Plasma Sodium 135, Potassium 4.2, Chloride 102, Carbon Dioxide 25.8, Anion Gap 11.4, BUN 29 H, Creatinine 1.21, Est GFR (Non-Af Amer) 45 L D, BUN/Creatinine Ratio 24.0 H, Random Glucose 114 H D, Calcium 7.9, Calcium Adj for Albumin 9.3, Total Bilirubin 0.9, AST 44, ALT 35, Alkaline Phosphatase 233 H, Total Protein 4.6 L, Albumin 1.8 L 07/08/18 08:11: Lactic Acid, Venous 1.5 07/08/18 08:39: Procalcitonin 1.03 H 07/08/18 15:27: WBC 7.7, RBC 2.81 L, Hgb 8.9 L, Hct 26.7 L, MCV 95.0, MCH 31.7 H, MCHC 33.3, RDW 16.6 H, Plt Count 102 L, MPV 11.0 07/09/18 06:00: WBC 10.4 D, RBC 2.37 L, Hgb 7.4 L*, Hct 22.6 L*, MCV 95.4, MCH 31.2 H, MCHC 32.7, RDW 17.1 H, Plt Count 117 L, MPV 10.6, Immature Gran % (Auto) 0.80 H, Immature Gran # (Auto) 0.08 H, Neutrophils % 78.5 H, Lymphocytes % 11.2 L, Monocytes % 8.4, Eosinophils % 0.9, Basophils % 0.2, Nucleated RBC % 0.0, Neutrophils # 8.2 H, Lymphocytes # 1.17 L, Monocytes # 0.9, Eosinophils # 0.1, Absolute Basophils 0.0 07/09/18 06:00: Sodium 134, Plasma Sodium 134, Potassium 4.4, Chloride 102, Carbon Dioxide 24.2, Anion Gap 12.2, BUN 30 H, Creatinine 1.52 H, Est GFR (Non- Af Amer) 34 L D, BUN/Creatinine Ratio 19.7, Random Glucose 106, Calcium 7.5 L 07/09/18 10:35: Hgb 8.4 L, Hct 25.0 L 07/10/18 07:10: WBC 16.7 H D, RBC 2.25 L, Hgb 7.2 L*, Hct 21.9 L*, MCV 97.3, MCH 32.0 H, MCHC 32.9, RDW 16.9 H, Plt Count 181, MPV 10.0 07/10/18 07:10: Sodium 133, Plasma Sodium 134, Potassium 3.9, Chloride 101, Carbon Dioxide 21.9 L, Anion Gap 14.0 H, BUN 33 H, Creatinine 1.71 H, Est GFR (Non-Af Amer) 30 L, BUN/Creatinine Ratio 19.3, Random Glucose 142 H D, Calcium 7.0 L 07/11/18 05:05: Hgb 6.3 L*, Hct 18.7 L* 07/11/18 05:05: Sodium 132, Plasma Sodium 132, Potassium 4.0, Chloride 100, Ca rbon Dioxide 21.3 L, Anion Gap 14.7 H, BUN 36 H, Creatinine 1.91 H, Est GFR (Non-Af Amer) 26 L, BUN/Creatinine Ratio 18.8, Random Glucose 85 D, Calcium 6.7 L 07/13/18 09:50: WBC 6.9, RBC 1.97 L, Hgb 6.4 L*, Hct 19.0 L*, MCV 96.4, MCH 32.5 H, MCHC 33.7, RDW 16.7 H, Plt Count 119 L, MPV 9.4, Immature Gran % (Auto) 1.30 H, Immature Gran # (Auto) 0.09 H, Neutrophils % 77.3 H, Lymphocytes % 11.3 L, Monocytes % 8.8, Eosinophils % 1.2, Basophils % 0.1, Nucleated RBC % 0.1, Neutrophils # 5.4, Lymphocytes # 0.78 L, Monocytes # 0.6, Eosinophils # 0.1, Absolute Basophils 0.0 07/13/18 09:50: Sodium 135, Plasma Sodium 136, Potassium 4.4, Chloride 103, Carbon Dioxide 22.4 L, Anion Gap 14.0 H, BUN 39 H, Creatinine 1.69 H, Est GFR (Non-Af Amer) 30 L, BUN/Creatinine Ratio 23.1 H, Random Glucose 154 H D, Calcium 7.5 L, Calcium Adj for Albumin 9.3, Total Bilirubin 2.2 H, AST 121 H, ALT 36, Alkaline Phosphatase 600 H, Total Protein 4.7 L, Albumin 1.3 L 07/13/18 09:50: Blood Type O Positive, Antibody Screen Negative, Crossmatch See Detail 07/13/18 19:05: Hgb 10.1 L, Hct 30.0 L 07/14/18 05:32: Sodium 134, Plasma Sodium 134, Potassium 4.1, Chloride 103, Carbon Dioxide 21.6 L, Anion Gap 13.5, BUN 36 H, Creatinine 1.53 H, Est GFR (Non-Af Amer) 34 L, BUN/Creatinine Ratio 23.5 H, Random Glucose 111 H, Calcium 8.0, Calcium Adj for Albumin 9.8, Total Bilirubin 2.8 H, AST 133 H, ALT 50, Alkaline Phosphatase 664 H, Total Protein 5.0 L, Albumin 1.4 L Discharge Location: [facility] Disposition: SNF Condition: Good Face to Face Encounter completed per [facility] Guidelines: No Level of Care: SNF Discharge Activity: Weight bearing Discharge Diet: Consistent carbs Skilled Nursing Therapy: Physicial Therapy, Occupation Therapy Referrals: Nancy Alford MD [Primary Care Provider] - Two Weeks Timoteo Ricci MD [Staff Physician] - Additional Patient Instructions (free text): To [facility] SNF for PT and OT to Evaluate and treat. She is to keep her wound clean and dry and cover with dry gauze. Continue with physical and occupational therapy weight bearing as tolerated. Will need 6 weeks with walker or assitive device to protect joint while ambulating during the recovery process. Dr Ricci follow up Orthopedic appt. on July 21 at 9:45am. Follow up with Dr Alford office appt. on WednesdayJuly 25 at 2:30pm. Prescriptions (Any new or edited meds): oxyCODONE HCL/ACETAMINOPHEN [Percocet 5-325 mg Tablet] 1 ea PO Q4H PRN 10 Days #30 tab PRN Reason: Pain Complete Home Medications List: Complete Home Medication List: blood-glucose meter kit See Dose Instructions .ROUTE .MEDSUPPLY ea 04/04/18 blood sugar diagnostic strips See Dose Instructions .ROUTE .MEDSUPPLY #100 ea 04/14/18 lancets 30 gauge See Dose Instructions .ROUTE .MEDSUPPLY #100 ea 04/14/18 Acetaminophen [Tylenol] 500 mg PO Q4H 07/06/18 Allopurinol [Zyloprim] 300 mg PO DAILY 07/06/18 Aspirin [Aspirin EC] 81 mg PO HS 07/06/18 Atorvastatin Calcium 40 mg PO HS 07/06/18 Carvedilol [Coreg] 6.25 mg PO BID 07/06/18 Cholecalciferol (Vitamin D3) [Vitamin D3] 2,000 unit PO DAILY 07/06/18 Clopidogrel Bisulfate [Plavix] 75 mg PO DAILY 07/06/18 Folic Acid 0.4 mg PO DAILY 07/06/18 Lisinopril 20 mg PO DAILY 07/06/18 Ubidecarenone [Coenzyme Q10] 100 mg PO DAILY 07/06/18 oxyCODONE HCL/ACETAMINOPHEN [Percocet 5-325 mg Tablet] 1 ea PO Q4H PRN 10 Days #30 tab 07/14/18
[2018-07-14 13:54] VITALS: BP 133/69
== END 2018-07-14 14:00 | DRG 470 ==
LOC: RAD 13:49 → MS 16:06 → SCU 07-09 09:23 → MS 07-11 11:01
PROVIDERS: ADMIT Family Medicine; ATTEND Family Medicine
CPT/HCPCS: 36415; 71010; 71045; 73030; 73060; 73502; 73522; 73562; 80048; 80053; 82948; 83605; 84145; 85014; 85018; 85025; 85027; 85610; 85730; 86850; 87040; 93005; 97110; 97116; 97162; 97164; 97165; 97530; 97535; 99213; G0463; P9016

== ENCOUNTER 2018-07-29 10:21 | Inpatient (IN) ==
[2018-07-29 10:51] LABS: Mean Corpuscular Hemoglobin 31.9 pg (27-31); Mean Corpuscular Hgb Conc 31.9 g/dl (32-36); Mean Platelet Volume 9.1 fl (8-12.5); Platelet Count 116 K/mm3 (150-450); Red Blood Count 2.29 M/mm3 (4.2-5.4); Red Cell Distribution Width 21.4 % (11.5-14.0); White Blood Count 14.9 K/mm3 (4.0-10.5)
[2018-07-29 11:06] LABS: Hematocrit 22.9 % (37.0-47.0); Hemoglobin 7.3 gm/dL (12.5-16.0)
[2018-07-29 11:08] LABS: Total Cells Counted 100
[2018-07-29 11:16] LABS: Anisocytosis 2+; Atypical (Reactive) Lymph 1 % (0-2); Band 11 % (0-2.0); Eosinophil 2 % (0-3); Neutrophil 78 % (42-75); Neutrophil # 11.6 K/mm3 (1.3-6.0); Platelet Estimate Decreased (NORMAL)
[2018-07-29 11:17] LABS: Hypochromia Trace; Macrocytosis 2+
[2018-07-29 11:18] LABS: Target Cells Trace
[2018-07-29 11:19] LABS: Lymphocyte 4 % (20-51); Monocyte 4 % (0-9); Polychromasia Trace
[2018-07-29] MEDS ORDERED: NORMAL SALINE 1,000 ML IV ONE (12:23)
[2018-07-29] MEDS ORDERED: BENZONATATE 100 MG CAPSULE PO PRN (12:24)
[2018-07-29] MEDS ORDERED: POLYVINYL ALCOHOL 150 DROP BTL OP PRN (12:24)
[2018-07-29] MEDS ORDERED: FUROSEMIDE 10 MG/ML VIAL IV ONE (12:29)
[2018-07-29] MEDS ORDERED: MORPHINE SULFATE 2 MG/ML DISP.SYRIN IV PRN (12:32)
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
[2018-07-29] MEDS: INSULIN REGULAR, HUMAN 100 UNITS/ML VIAL SC SCH ×2 (17:27→21:04)
[2018-07-29] MEDS: LEVOFLOXACIN IN DEXTROSE 5 % 750 MG/150 ML BAG IV SCH (18:22)
[2018-07-29 20:28] LABS: Hematocrit 25.1 % (37.0-47.0)
[2018-07-29 20:31] LABS: Urine Bilirubin Negative (NEGATIVE); Urine Blood Negative /ul (NEGATIVE); Urine Ketone Negative (NEGATIVE); Urine Nitrite Negative (NEGATIVE); Urine Protein 15 mg/dL (NEGATIVE); Urine Specific Gravity <=1.005 SP.GR. (1.005-1.010); Urine pH 6.5 pH (5.0-7.0)
[2018-07-29 20:35] LABS: Urine Appearance Slightly Cloudy (CLEAR); Urine Color Yellow
[2018-07-29 20:39] LABS: Urine Bacteria None Seen; Urine RBC None Seen /hpf (0-5); Urine WBC None Seen /hpf (0-5)
[2018-07-29] MEDS: NYSTATIN 15 APPL BTL TP SCH (21:12)
[2018-07-29] MEDS: CIPROFLOXACIN HCL 25 DROP BTL EACHEYE SCH (21:12)
[2018-07-30] MEDS: CIPROFLOXACIN HCL 25 DROP BTL EACHEYE SCH ×6 (00:58→20:08)
[2018-07-30 06:14] LABS: Mean Cell Volume 95.9 fl (78-100); Mean Corpuscular Hemoglobin 32.1 pg (27-31); Mean Corpuscular Hgb Conc 33.5 g/dl (32-36); Mean Platelet Volume 9.7 fl (8-12.5); NRBC# 0.1 k/mm3 (0-1); Neutrophil # 9.9 K/mm3 (1.3-6.0); Neutrophil % 82.2 % (42-75.0); Platelet Count 95 K/mm3 (150-450); Red Blood Count 2.43 M/mm3 (4.2-5.4); Red Cell Distribution Width 19.9 % (11.5-14.0); White Blood Count 12.1 K/mm3 (4.0-10.5)
[2018-07-30 06:22] LABS: Albumin * 1.3 gm/dl (3.4-5.0); Anion Gap 12.8 mmol/L (6.8-13.8); Bilirubin, Total 2.2 mg/dL (0.0-1.1); Ca. Corrected For Albumin 10.5 mg/dL (8.4-10.2); Calcium * 8.7 mg/dL (7.9-10.9); Carbon Dioxide 24.5 mmol/L (24-32.6); Potassium 4.3 mmol/L (3.4-4.6); Total Protein 5.2 gm/dL (6.2-8.2)
[2018-07-30 06:45] LABS: Hemoglobin 7.8 gm/dL (12.5-16.0)
[2018-07-30 06:46] LABS: Hematocrit 23.3 % (37.0-47.0)
[2018-07-30] MEDS: INSULIN REGULAR, HUMAN 100 UNITS/ML VIAL SC SCH ×4 (07:27→20:15)
[2018-07-30] MEDS: NYSTATIN 15 APPL BTL TP SCH ×2 (09:28→20:09)
[2018-07-30] MEDS: CHOLECALCIFEROL 1,000 UNIT CAPSULE PO SCH (09:31)
[2018-07-30] MEDS: DOCUSATE SODIUM 100 MG CAPSULE PO SCH (09:32)
[2018-07-30] MEDS: FOLIC ACID 0.4 MG TABLET PO SCH (09:32)
[2018-07-30] MEDS: PIPERACILLIN SODIUM/TAZOBACTAM 3.375 GM in DEXTROSE 5 % IN WATER 100 ML IV SCH ×4 (12:28→20:08)
--- NOTE | 2018-07-30 12:31 | PN ---
Subjective - Date and Time Seen Date: 07/30/18 Time: 12:22 Subjective Narrative: I was informed this morning that Ms. Estrada was admitted. Was not informed prior. Resting in bed in minimal distress. Arousable. Was seen in clinic 2 days ago, was doing ok and new dressing applied. Multiple dressing changes have been performed since then. Family is in the room and states that she is more somnolent. Left lower extremity: Minimal pain with hip range of motion. Left hip and buttock area is less swollen. Serosanguineous drainage from the hip consistent with suspected hematoma resolution is identified in the clinic. No gross signs of purulence or malodorous drainage. Superficial skin irritation from dressing changes. No gross signs of local erythema or calor. Neurovascular intact left lower extremity. Assessment: Status post left hip hemiarthroplasty for previous hip fracture Plan: I would recommend dry gauze dressings to the hip and avoid occlusive dressings at this time. Local wound care otherwise. I discussed with the family that based on the fact that she has been on Plavix as well as she has received multiple units of packed red blood cells with no additional platelets that I will discuss with her medical provider possible transfusion of platelets. Due to the fact that she is incontinent as well as the fact that she has this postoperative wound which is still healing, I would recommend a Lafleur catheter to protect her hip as well as for the fact that she has limited mobility at this time. A culture of the wound was obtained which I feel is of little relevance as this will likely contain skin kristen and if needed an aspiration of the hip can be performed. I again feel that there is not a gross infection of the hip and should surgical intervention be necessary for the hip this would be quite risky to her overal health. She is also being treated for pneumonia and would recommend continuing treatment of this. I agree with holding anticoagulation as she continues to be anemic but I do not feel she has any active bleeding sites that would require surgical intervention at this time. If there is no limitations due to her medical condition, I would recommend continued PT to help with mobility. Objective - Vitals Vitals: Last Vital Signs Temp 37 C 07/30/18 08:51 Pulse 107 H 07/30/18 08:51 Resp 16 07/30/18 08:51 BP 104/49 07/30/18 08:51 Pulse Ox 97 07/30/18 08:51 - Abnormal Lab Findings Abnormal Lab Findings: Abnormal Lab Results 07/29/18 07/29/18 07/29/18 Range/Units 12:43 12:43 12:45 WBC (4.0-10.5) K/mm3 RBC (4.2-5.4) M/mm3 Hgb (12.5-16.0) gm/dL Hct (37.0-47.0) % MCH (27-31) pg RDW (11.5-14.0) % Plt Count (150-450) K/mm3 Immature Gran % (Auto) (0.001-0.429) % Immature Gran # (Auto) (0.000-0.0310) K/mm3 Neutrophils % (42-75.0) % Lymphocytes % (20-51) % Neutrophils # (1.3-6.0) K/mm3 Lymphocytes # (1.5-3.5) k/mm3 ESR Greater than 120 H (0-15) mm/hr BUN (3-23) mg/dL Creatinine (0.4-1.4) mg/dL Est GFR (Non-Af Amer) (60-130) mL/min BUN/Creatinine Ratio (9.0-21.6) Calcium Adj for Albumin (8.4-10.2) mg/dL Total Bilirubin (0.0-1.1) mg/dL AST (0-48) U/L ALT (19-67) U/L Alkaline Phosphatase (50-170) U/L C-Reactive Prot, Quant 30.5 H (0.0-0.9) mg/dL Total Protein (6.2-8.2) gm/dL Albumin (3.4-5.0) gm/dl Urine Protein (NEGATIVE) mg/dL Urine Urobilinogen (NORMAL) EU/dl Urine Comment Crossmatch See Detail 07/29/18 07/29/18 07/30/18 Range/Units 18:40 Unknown 05:54 WBC 12.1 H (4.0-10.5) K/mm3 RBC 2.43 L (4.2-5.4) M/mm3 Hgb 8.0 L 7.8 L* (12.5-16.0) gm/dL Hct 25.1 L 23.3 L* (37.0-47.0) % MCH 32.1 H (27-31) pg RDW 19.9 H (11.5-14.0) % Plt Count 95 L (150-450) K/mm3 Immature Gran % (Auto) 1.00 H (0.001-0.429) % Immature Gran # (Auto) 0.12 H (0.000-0.0310) K/mm3 Neutrophils % 82.2 H (42-75.0) % Lymphocytes % 10.4 L (20-51) % Neutrophils # 9.9 H (1.3-6.0) K/mm3 Lymphocytes # 1.26 L (1.5-3.5) k/mm3 ESR (0-15) mm/hr BUN (3-23) mg/dL Creatinine (0.4-1.4) mg/dL Est GFR (Non-Af Amer) (60-130) mL/min BUN/Creatinine Ratio (9.0-21.6) Calcium Adj for Albumin (8.4-10.2) mg/dL Total Bilirubin (0.0-1.1) mg/dL AST (0-48) U/L ALT (19-67) U/L Alkaline Phosphatase (50-170) U/L C-Reactive Prot, Quant (0.0-0.9) mg/dL Total Protein (6.2-8.2) gm/dL Albumin (3.4-5.0) gm/dl Urine Protein 15 H (NEGATIVE) mg/dL Urine Urobilinogen 2.0 H (NORMAL) EU/dl Urine Comment Culture ordered L Crossmatch 07/30/18 Range/Units 05:54 WBC (4.0-10.5) K/mm3 RBC (4.2-5.4) M/mm3 Hgb (12.5-16.0) gm/dL Hct (37.0-47.0) % MCH (27-31) pg RDW (11.5-14.0) % Plt Count (150-450) K/mm3 Immature Gran % (Auto) (0.001-0.429) % Immature Gran # (Auto) (0.000-0.0310) K/mm3 Neutrophils % (42-75.0) % Lymphocytes % (20-51) % Neutrophils # (1.3-6.0) K/mm3 Lymphocytes # (1.5-3.5) k/mm3 ESR (0-15) mm/hr BUN 38 H (3-23) mg/dL Creatinine 1.41 H (0.4-1.4) mg/dL Est GFR (Non-Af Amer) 38 L (60-130) mL/min BUN/Creatinine Ratio 27.0 H (9.0-21.6) Calcium Adj for Albumin 10.5 H (8.4-10.2) mg/dL Total Bilirubin 2.2 H (0.0-1.1) mg/dL AST 330 H (0-48) U/L ALT 179 H (19-67) U/L Alkaline Phosphatase 999 H (50-170) U/L C-Reactive Prot, Quant (0.0-0.9) mg/dL Total Protein 5.2 L (6.2-8.2) gm/dL Albumin 1.3 L (3.4-5.0) gm/dl Urine Protein (NEGATIVE) mg/dL Urine Urobilinogen (NORMAL) EU/dl Urine Comment Crossmatch
[2018-07-30] MEDS: ALBUTEROL SULFATE/IPRATROPIUM 3 ML NEBU IH SCH ×2 (13:36→18:03)
[2018-07-30] MEDS ORDERED: VANCOMYCIN HCL 1.75 GM in DEXTROSE 5 % IN WATER 500 ML IV SCH ×2 (16:00)
--- NOTE | 2018-07-30 23:20 | PN ---
Subjective - Date and Time Seen Date: 07/30/18 Time: 10:15 Subjective Narrative: Patient is somnolent. Does not answer questions. Awakens briefly, but falls back asleep. Patient's daughters present who report she has been coughing a lot and was in close contact with another patient in the [facility] who was just diagnosed with pneumonia. They also report she coughs after eating. Nursing reports she is on a nectar thickened diet at [facility]. Objective - Vitals Vitals: Last Vital Signs Temp 37.2 C 07/30/18 18:54 Pulse 110 H 07/30/18 18:54 Resp 20 07/30/18 18:54 BP 107/41 07/30/18 18:54 Pulse Ox 100 07/30/18 18:54 - Abnormal Lab Findings Abnormal Lab Findings: Abnormal Lab Results 07/30/18 07/30/18 Range/Units 05:54 05:54 WBC 12.1 H (4.0-10.5) K/mm3 RBC 2.43 L (4.2-5.4) M/mm3 Hgb 7.8 L* (12.5-16.0) gm/dL Hct 23.3 L* (37.0-47.0) % MCH 32.1 H (27-31) pg RDW 19.9 H (11.5-14.0) % Plt Count 95 L (150-450) K/mm3 Immature Gran % (Auto) 1.00 H (0.001-0.429) % Immature Gran # (Auto) 0.12 H (0.000-0.0310) K/mm3 Neutrophils % 82.2 H (42-75.0) % Lymphocytes % 10.4 L (20-51) % Neutrophils # 9.9 H (1.3-6.0) K/mm3 Lymphocytes # 1.26 L (1.5-3.5) k/mm3 BUN 38 H (3-23) mg/dL Creatinine 1.41 H (0.4-1.4) mg/dL Est GFR (Non-Af Amer) 38 L (60-130) mL/min BUN/Creatinine Ratio 27.0 H (9.0-21.6) Calcium Adj for Albumin 10.5 H (8.4-10.2) mg/dL Total Bilirubin 2.2 H (0.0-1.1) mg/dL AST 330 H (0-48) U/L ALT 179 H (19-67) U/L Alkaline Phosphatase 999 H (50-170) U/L Total Protein 5.2 L (6.2-8.2) gm/dL Albumin 1.3 L (3.4-5.0) gm/dl - Exam Constitutional: Present: Somnolent Respiratory: Present: decreased breath sounds - bilateral bases and coarse, other Cardiovascular/Chest: Present: regular rate, rhythm, no murmur Abdomen: Present: Normal bowel sounds, soft, nontender, nondistended Extremity: Present: lower extremity edema - 2+ Skin Exam: Present: other - Upper extremity non-pitting edema worse on right than left Cauti Physician Documentation - Urinary Catheter Management Urethral ([place]) Date of Insertion: 07/30/18 Assessment/Plan Plan Narrative: Arlin had a right arm CT due to swelling which showed no evidence of mass, hematoma, or any significant injury. It showed soft tissue swelling likely from third spacing fluid. However, CT did happen to catch right lower lobe pneumonia. Technically she qualifies for hospital acquired pneumonia due to recent hospitalization with hip fracture repair where she received a dose of IV antibiotics within the last month. She has been coughing recently and has leukocytosis. To cover for hospital acquired pneumonia will treat with zosyn, vancomycin, and levaquin. She will get duonebs and cornet. Will have her evaluated by speech as there is a possibility of aspiration based on reports of her coughing after eating. Due to third spacing fluids will stop fluids for now. In light of the right lower lobe pneumonia, I suspect that this may be causing the elevation in liver enzymes from inflammation of proximity to the liver. Will monitor enzymes. - Problems/Diagnosis (1) Pneumonia Problem: Acute Qualifiers: Laterality: right Lung location: lower lobe of lung (2) Liver enzyme elevation Problem: Acute (3) Anemia Problem: Acute Qualifiers: Other causes of anemia: acute posthemorrhagic (4) Acute kidney injury superimposed on CKD Problem: Acute
[2018-07-31] MEDS: ALBUTEROL SULFATE/IPRATROPIUM 3 ML NEBU IH SCH ×4 (00:16→18:01)
[2018-07-31] MEDS: CIPROFLOXACIN HCL 25 DROP BTL EACHEYE SCH ×6 (00:23→20:09)
[2018-07-31] MEDS: PIPERACILLIN SODIUM/TAZOBACTAM 3.375 GM in DEXTROSE 5 % IN WATER 100 ML IV SCH ×6 (04:26→20:05)
[2018-07-31 06:12] LABS: Mean Cell Volume 96.8 fl (78-100); Mean Corpuscular Hemoglobin 31.5 pg (27-31); Mean Corpuscular Hgb Conc 32.6 g/dl (32-36); Mean Platelet Volume 9.7 fl (8-12.5); Neutrophil # 7.1 K/mm3 (1.3-6.0); Neutrophil % 75.4 % (42-75.0); Red Blood Count 2.22 M/mm3 (4.2-5.4); Red Cell Distribution Width 19.9 % (11.5-14.0); White Blood Count 9.4 K/mm3 (4.0-10.5)
[2018-07-31] MEDS: INSULIN REGULAR, HUMAN 100 UNITS/ML VIAL SC SCH ×4 (06:25→20:13)
[2018-07-31 06:27] LABS: Albumin * 1.2 gm/dl (3.4-5.0); Anion Gap 12.6 mmol/L (6.8-13.8); BUN/Creatinine Ratio 22.3 (9.0-21.6); Bilirubin, Total 1.3 mg/dL (0.0-1.1); Ca. Corrected For Albumin 10.3 mg/dL (8.4-10.2); Calcium * 8.4 mg/dL (7.9-10.9); Carbon Dioxide 24.5 mmol/L (24-32.6); Potassium 4.1 mmol/L (3.4-4.6); Total Protein 4.9 gm/dL (6.2-8.2)
[2018-07-31 06:35] LABS: Platelet Count 114 K/mm3 (150-450)
[2018-07-31 06:36] LABS: Hematocrit 21.5 % (37.0-47.0)
[2018-07-31] MEDS: CHOLECALCIFEROL 1,000 UNIT CAPSULE PO SCH (08:05)
[2018-07-31] MEDS: DOCUSATE SODIUM 100 MG CAPSULE PO SCH (08:05)
[2018-07-31] MEDS: FOLIC ACID 0.4 MG TABLET PO SCH (08:05)
[2018-07-31] MEDS: NYSTATIN 15 APPL BTL TP SCH ×2 (08:09→20:09)
--- NOTE | 2018-07-31 11:38 | PN ---
Subjective - Date and Time Seen Date: 07/31/18 Time: 11:38 Subjective Narrative: Arlin is much improved today. She is alert and answers questions appropriately. She reports right ear pain, but otherwise reports doing well. She continues to cough, but denies shortness of breath or chest pain. No fever or chills. Objective - Vitals Vitals: Last Vital Signs Temp 36.6 C 07/31/18 11:00 Pulse 91 07/31/18 11:00 Resp 20 07/31/18 11:00 BP 113/57 07/31/18 11:00 Pulse Ox 98 07/31/18 11:00 - Abnormal Lab Findings Abnormal Lab Findings: Abnormal Lab Results 07/31/18 07/31/18 Range/Units 06:00 06:00 RBC 2.22 L (4.2-5.4) M/mm3 Hgb 7.0 L* (12.5-16.0) gm/dL Hct 21.5 L* (37.0-47.0) % MCH 31.5 H (27-31) pg RDW 19.9 H (11.5-14.0) % Plt Count 114 L (150-450) K/mm3 Immature Gran % (Auto) 1.70 H (0.001-0.429) % Immature Gran # (Auto) 0.16 H (0.000-0.0310) K/mm3 Neutrophils % 75.4 H (42-75.0) % Lymphocytes % 13.4 L (20-51) % Neutrophils # 7.1 H (1.3-6.0) K/mm3 Lymphocytes # 1.26 L (1.5-3.5) k/mm3 BUN 35 H (3-23) mg/dL Creatinine 1.57 H (0.4-1.4) mg/dL Est GFR (Non-Af Amer) 33 L (60-130) mL/min BUN/Creatinine Ratio 22.3 H (9.0-21.6) Random Glucose 113 H (70-110) mg/dL Calcium Adj for Albumin 10.3 H (8.4-10.2) mg/dL Total Bilirubin 1.3 H (0.0-1.1) mg/dL AST 255 H (0-48) U/L ALT 146 H (19-67) U/L Alkaline Phosphatase 982 H (50-170) U/L Total Protein 4.9 L (6.2-8.2) gm/dL Albumin 1.2 L (3.4-5.0) gm/dl - Exam Constitutional: Present: Alert, Cooperative ENT Exam: Present: hearing grossly normal Respiratory: Present: decreased breath sounds Cardiovascular/Chest: Present: regular rate, rhythm, no murmur Abdomen: Present: Normal bowel sounds, soft, nontender, nondistended Extremity: Present: swelling - non-pitting edema in upper extremities, improved from yesterday. 2+ pitting edema to lower extremities, compression stockings in place Skin Exam: Present: normal color, warm/dry, no cyanosis Cauti Physician Documentation - Urinary Catheter Management Urethral ([place]) Date of Insertion: 07/30/18 Assessment/Plan Plan Narrative: Arlin is an 88 yo female with: 1) Hospital Acquired Pneumonia - Continue zosyn, vancomycin, and levaquin; duoneb; cornet. She is markedly improved today clinically and WBC normalized. Her mentation is improved and I suspect near her baseline. 2) Anemia - I believe this is acute on chronic exacerbation of her anemia of chronic disease secondary to recent hip fracture and repair and increased stress on her body. There is no evidence of any significant bleeding at this time. Her hemoglobin was 7.0 this AM with less than 7 being my threshold for transfusion. It was rechecked at noon to see if it would continue to drop, but improved to 7.3. Will continue to monitor. 3) Thrombocytopenia - Platelets monitored and above the threshold to transfuse platelets. There could be consideration for transfusing platelets due to the significant number of blood transfusions she has received in the last month. But today with her platelets that are improving and hemoglobin that is improved I will hold off on platelet transfusion. 4) Liver enzyme elevated - Suspect due to localized inflammation in right lower lobe from pneumonia. - Problems/Diagnosis (1) Pneumonia Problem: Acute Qualifiers: Laterality: right Lung location: lower lobe of lung (2) Thrombocytopenia Problem: Acute (3) Anemia Problem: Acute Qualifiers: Anemia type: unspecified type Qualified Code(s): D64.9 - Anemia, unspecified (4) Liver enzyme elevation Problem: Acute
[2018-07-31 11:57] LABS: Mean Cell Volume 97.4 fl (78-100); Mean Corpuscular Hemoglobin 31.6 pg (27-31); Mean Corpuscular Hgb Conc 32.4 g/dl (32-36); Mean Platelet Volume 9.2 fl (8-12.5); Neutrophil # 6.7 K/mm3 (1.3-6.0); Red Blood Count 2.31 M/mm3 (4.2-5.4); Red Cell Distribution Width 20.7 % (11.5-14.0); White Blood Count 8.8 K/mm3 (4.0-10.5)
[2018-07-31 11:59] LABS: Hemoglobin 7.3 gm/dL (12.5-16.0)
[2018-07-31 12:00] LABS: Hematocrit 22.5 % (37.0-47.0)
[2018-07-31 12:03] LABS: Platelet Count 112 K/mm3 (150-450)
[2018-07-31] MEDS: LEVOFLOXACIN IN DEXTROSE 5 % 750 MG/150 ML BAG IV SCH (12:51)
[2018-08-01] MEDS: CIPROFLOXACIN HCL 25 DROP BTL EACHEYE SCH ×6 (00:04→20:00)
[2018-08-01] MEDS: ALBUTEROL SULFATE/IPRATROPIUM 3 ML NEBU IH SCH ×4 (00:55→18:00)
[2018-08-01] MEDS: PIPERACILLIN SODIUM/TAZOBACTAM 3.375 GM in DEXTROSE 5 % IN WATER 100 ML IV SCH ×6 (04:01→19:05)
[2018-08-01] MEDS: INSULIN REGULAR, HUMAN 100 UNITS/ML VIAL SC SCH ×4 (07:05→20:04)
[2018-08-01] MEDS: DOCUSATE SODIUM 100 MG CAPSULE PO SCH (08:47)
[2018-08-01] MEDS: FOLIC ACID 0.4 MG TABLET PO SCH (08:47)
[2018-08-01] MEDS: NYSTATIN 15 APPL BTL TP SCH ×2 (08:47→20:00)
[2018-08-01] MEDS: CHOLECALCIFEROL 1,000 UNIT CAPSULE PO SCH (08:47)
[2018-08-01] MEDS ORDERED: NORMAL SALINE 500 ML IV ONE (09:26)
--- NOTE | 2018-08-01 09:50 | PN ---
Subjective - Date and Time Seen Date: 08/01/18 Time: 09:34 Subjective Narrative: I still have a cough but feels stronger. Objective Objective Narrative: 88-year-old female admitted for ongoing anemia, generalized weakness, moderate dehydration, liver failure, and right-sided bronchopneumonia was evaluated at bedside and was found to be afebrile and in no acute distress. Patient was transfused a unit of PRBC during the weekend and her hemoglobin increased initially but has decreased to his previous level, at this point we think that her anemia could be anemia of chronic disease she has a history of secondary to her chronic kidney disease. Patient's platelets which was on a downward trend is now increasing after her antiplatelet medications aspirin and Plavix were held. Her WBCs are now within normal levels and her neutrophil count has also decreased. Microbiology labs demonstrate a growth of gram- negative bacteria specifically Pseudomonas and Proteus mirabilis, she was also found to have a right-sided pneumonia on her CT of her right upper extremity and given the fact that the patient has been hospitalized and is currently residing in a [facility] triple antibiotics for hospital-acquired/healthcare acquired pneumonia were added. Patient was also hydrated and has been maintaining her blood pressure and there has not been recurrence of fever. She is currently tolerating oral intake without any problems but has a cough which might also be due to her pneumonia. As a precaution speech therapy was also consulted and patient was found to have an adequate swallowing function, but the therapist recommended video swallow test if her symptoms worsen. - Review of Systems Generalized/Overall Review: Reports: Weakness EENTM: Reports: No Symptoms Reported Respiratory: Reports: Cough Cardiac: Reports: No Symptoms Reported Abdominal: Reports: No Symptoms Reported Genitourinary Symptoms: Reports: No Symptoms Reported Musculoskeletal Complaints: Reports: Joint Pain Neurological: Reports: No Symptoms Reported Skin: Reports: Other - Foul-smelling partially healed surgical wound on the left hip with no signs of bleeding Endocrine: Reports: No Symptoms Reported - Vitals Vitals: Last Vital Signs Temp 36.4 C 08/01/18 06:50 Pulse 103 H 08/01/18 06:50 Resp 16 08/01/18 06:50 BP 113/48 08/01/18 06:50 Pulse Ox 95 08/01/18 06:50 - Abnormal Lab Findings Abnormal Lab Findings: Abnormal Lab Results 07/31/18 Range/Units 11:53 RBC 2.31 L (4.2-5.4) M/mm3 Hgb 7.3 L* (12.5-16.0) gm/dL Hct 22.5 L* (37.0-47.0) % MCH 31.6 H (27-31) pg RDW 20.7 H (11.5-14.0) % Plt Count 112 L (150-450) K/mm3 Immature Gran % (Auto) 2.00 H (0.001-0.429) % Immature Gran # (Auto) 0.18 H (0.000-0.0310) K/mm3 Neutrophils % 76.0 H (42-75.0) % Lymphocytes % 12.2 L (20-51) % Monocytes % 9.1 H (0.0-9) % Neutrophils # 6.7 H (1.3-6.0) K/mm3 Lymphocytes # 1.08 L (1.5-3.5) k/mm3 - Exam Constitutional: Present: Alert, Oriented x3, Cooperative, Well developed, Well nourished, No distress, Elderly ENT Exam: Present: normal ENT inspection, hearing grossly normal, pharynx normal, TMs normal Neck: Present: non-tender, full range of motion, supple, normal inspection, trachea midline Respiratory: Present: chest non-tender, lungs clear, normal breath sounds, no respiratory distress, decreased breath sounds - Decreased breath sounds on right lung base Cardiovascular/Chest: Present: normal peripheral pulses, regular rate, rhythm, no chest tenderness, no edema, no gallop, no JVD, no murmur, no rub Abdomen: Present: Normal bowel sounds, soft, nontender, nondistended, no rebound tenderness, no hepatospenomegaly, no masses /Rectal: Present: Exam deferred Extremity: Present: no pedal edema, no calf tenderness, other - Decreased range of motion on left hip with partially healed surgical wound with foul smell covered by dry bandage, no active signs of bleeding Skin Exam: Present: normal color, warm/dry, no cyanosis Lymphatic: Present: no adenopathy Neurologic: Present: 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, no motor/sensory deficits, alert, normal mood/affect, oriented x 3 Appearance: Present: appropriate appearance, appropriate insight Eye contact: Present: cooperative, good eye contact, normal speech Thoughts: Present: normal thought pattern, no apparent hallucination Cauti Physician Documentation - Urinary Catheter Management Urethral (Lafleur) Date of Insertion: 07/30/18 Assessment/Plan Plan Narrative: We will continue to treat patient with IV antibiotics which were revised this morning, vancomycin as well as Levaquin were discontinued and patient was continued on Zosyn which covers for anaerobes in case of aspiration pneumonia and gram negatives which is what is growing and her left surgical wound per culture results. We will continue to watch patient for fever and continue to monitor her vitals, additional soft IV hydration was ordered to continue optimizing her hydration status. Patient did okay on her swallow test but we will continue to watch for possible difficulty with swallowing. Consultation to PT will be placed so that she can continue in the hospital physical therapy and to avoid deconditioning. Discussion with family about hospice care will be initiated today and family will be updated on her condition. Follow-up lab has been ordered for tomorrow morning including ESR and CRP. Liver enzymes are on a downward trend so we will continue to follow them, it is possible that elevated liver enzymes were due to an inflammatory response to her acute pneumonia. Will reevaluate on labs tomorrow morning. We will continue to monitor the patient closely. - Problems/Diagnosis (1) Anemia Problem: Acute Qualifiers: Other causes of anemia: acute posthemorrhagic (2) Liver failure Problem: Acute (3) Diabetes 1.5, managed as type 2 Problem: Acute (4) Hypotension Problem: Acute (5) Leukocytosis Problem: Acute (6) Bleeding of unknown origin Problem: Acute (7) Dehydration, moderate Problem: Acute (8) Illness Problem: Acute (9) Diabetes 1.5, managed as type 2 Problem: Chronic (10) Pneumonia Problem: Acute
--- NOTE | 2018-08-01 13:12 | PN ---
Subjective - Date and Time Seen Date: 08/01/18 Time: 13:10 Subjective Narrative: Sitting in the chair. No complaints. More alert today. Left lower extremity: Minimal pain with hip range of motion. Left hip and buttock area stable. No drainage on current dressing, no noted erythema. No gross signs of purulence or malodorous drainage. Superficial skin irritation from dressing changes. Assessment: Status post left hip hemiarthroplasty for previous hip fracture Plan: I would recommend dry gauze dressings to the hip and avoid occlusive dressings at this time. Local wound care otherwise. Continue PT. No acute orthopedic intervention needed at this time. Keep scheduled ortho follow-up. Keep wound dry. Objective - Vitals Vitals: Last Vital Signs Temp 36.6 C 08/01/18 10:00 Pulse 91 08/01/18 10:13 Resp 20 08/01/18 10:00 BP 129/57 08/01/18 10:00 Pulse Ox 97 08/01/18 10:00 - Abnormal Lab Findings Abnormal Lab Findings: Abnormal Lab Results 08/01/18 08/01/18 Range/Units 09:23 09:23 ESR 119 H (0-15) mm/hr C-Reactive Prot, Quant 17.7 H (0.0-0.9) mg/dL Cauti Physician Documentation - Urinary Catheter Management Urethral (Lafleur) Date of Insertion: 07/30/18
[2018-08-02] MEDS: ALBUTEROL SULFATE/IPRATROPIUM 3 ML NEBU IH SCH ×5 (00:03→18:03)
[2018-08-02] MEDS: CIPROFLOXACIN HCL 25 DROP BTL EACHEYE SCH ×6 (00:10→20:47)
[2018-08-02] MEDS: PIPERACILLIN SODIUM/TAZOBACTAM 3.375 GM in DEXTROSE 5 % IN WATER 100 ML IV SCH ×6 (04:22→20:48)
[2018-08-02 05:32] LABS: Mean Cell Volume 98.2 fl (78-100); Mean Corpuscular Hemoglobin 31.9 pg (27-31); Mean Corpuscular Hgb Conc 32.4 g/dl (32-36); Mean Platelet Volume 9.3 fl (8-12.5); Neutrophil # 3.5 K/mm3 (1.3-6.0); Neutrophil % 61.3 % (42-75.0); Platelet Count 64 K/mm3 (150-450); Red Blood Count 2.26 M/mm3 (4.2-5.4); Red Cell Distribution Width 21.5 % (11.5-14.0); White Blood Count 5.7 K/mm3 (4.0-10.5)
[2018-08-02 05:44] LABS: Hematocrit 22.2 % (37.0-47.0); Hemoglobin 7.2 gm/dL (12.5-16.0)
[2018-08-02 05:55] LABS: Albumin * 1.2 gm/dl (3.4-5.0); Anion Gap 12.3 mmol/L (6.8-13.8); BUN/Creatinine Ratio 18.1 (9.0-21.6); Bilirubin, Total 1.3 mg/dL (0.0-1.1); Ca. Corrected For Albumin 10.6 mg/dL (8.4-10.2); Calcium * 8.7 mg/dL (7.9-10.9); Carbon Dioxide 25.8 mmol/L (24-32.6); Potassium 4.1 mmol/L (3.4-4.6)
[2018-08-02] MEDS: INSULIN REGULAR, HUMAN 100 UNITS/ML VIAL SC SCH ×4 (07:12→21:05)
[2018-08-02] MEDS: NYSTATIN 15 APPL BTL TP SCH ×2 (08:03→20:49)
[2018-08-02] MEDS: CHOLECALCIFEROL 1,000 UNIT CAPSULE PO SCH (08:03)
[2018-08-02] MEDS: FOLIC ACID 0.4 MG TABLET PO SCH (08:03)
[2018-08-02] MEDS: DOCUSATE SODIUM 100 MG CAPSULE PO SCH (08:04)
--- NOTE | 2018-08-02 10:50 | PN ---
Subjective - Date and Time Seen Date: 08/02/18 Time: 10:34 Subjective Narrative: I have right shoulder pain. Objective Objective Narrative: 88-year-old female admitted for ongoing anemia, generalized weakness, moderate dehydration, liver failure, and right-sided bronchopneumonia, and infected left hip surgical wound was evaluated at bedside and was found to be afebrile and in no acute distress. Patient patient has shown clinical improvement, she is maintaining her vitals, denies of any recurrence of fever, and she appears stronger. She also reports feeling better than when she got here. However, thrombocytopenia and anemia continues to be an issue in fact her platelet count decreased to 64 per this morning's labs and hemoglobin has remained stable at 7.2 despite transfusion of 1 unit PRBC during the weekend. Clinically patient shows no signs of active bleeding, there has not been any melena or blood in her stools and CT of her right upper extremity was negative for internal bleeding. However patient continues to have a mild dry cough possibly due to her pneumonia, crackles were heard on auscultation during today's bedside evaluation. This may be due to the fluid hydration therefore IV fluids will be stopped since patient appears adequately hydrated clinically. I will see consultation with psychiatry resident on the phone to discuss patient's case in order to determine the next step of action dealing with her hematologic abnormalities. In the meantime I will order follow-up labs for tomorrow morning for evaluation. She will continue on IV antibiotics for her infected left hip wound which was found to be growing Pseudomonas and haemophilus sensitive to Zosyn. - Review of Systems Generalized/Overall Review: Reports: No Symptoms Reported EENTM: Reports: No Symptoms Reported Respiratory: Reports: Cough Cardiac: Reports: No Symptoms Reported Abdominal: Reports: No Symptoms Reported Genitourinary Symptoms: Reports: No Symptoms Reported Musculoskeletal Complaints: Reports: Joint Pain - Left hip pain, right shoulder pain Neurological: Reports: No Symptoms Reported Skin: Reports: No Symptoms Reported Endocrine: Reports: No Symptoms Reported - Vitals Vitals: Last Vital Signs Temp 36.9 C 08/02/18 10:00 Pulse 94 08/02/18 10:00 Resp 20 08/02/18 10:00 BP 102/42 08/02/18 10:00 Pulse Ox 94 08/02/18 10:00 - Abnormal Lab Findings Abnormal Lab Findings: Abnormal Lab Results 08/02/18 08/02/18 Range/Units 05:29 05:29 RBC 2.26 L (4.2-5.4) M/mm3 Hgb 7.2 L* (12.5-16.0) gm/dL Hct 22.2 L* (37.0-47.0) % MCH 31.9 H (27-31) pg RDW 21.5 H (11.5-14.0) % Plt Count 64 L (150-450) K/mm3 Immature Gran % (Auto) 4.20 H (0.001-0.429) % Immature Gran # (Auto) 0.24 H (0.000-0.0310) K/mm3 Lymphocytes % 17.7 L (20-51) % Monocytes % 14.2 H (0.0-9) % Lymphocytes # 1.00 L (1.5-3.5) k/mm3 BUN 28 H (3-23) mg/dL Creatinine 1.55 H (0.4-1.4) mg/dL Est GFR (Non-Af Amer) 34 L (60-130) mL/min Calcium Adj for Albumin 10.6 H (8.4-10.2) mg/dL Total Bilirubin 1.3 H (0.0-1.1) mg/dL AST 481 H (0-48) U/L ALT 233 H (19-67) U/L Alkaline Phosphatase 1087 H (50-170) U/L Total Protein 5.0 L (6.2-8.2) gm/dL Albumin 1.2 L (3.4-5.0) gm/dl - Exam Constitutional: Present: Alert, Oriented x3, Cooperative, Well developed, Well nourished, No distress, Elderly ENT Exam: Present: normal ENT inspection, hearing grossly normal, pharynx normal, TMs normal Neck: Present: non-tender, full range of motion, supple, normal inspection, trachea midline Breasts: Present: Exam deferred Respiratory: Present: crackles - Mild bibasilar crackles Cardiovascular/Chest: Present: normal peripheral pulses, regular rate, rhythm, no chest tenderness, no edema, no gallop, no JVD, no murmur, no rub Abdomen: Present: Normal bowel sounds, soft, nontender, nondistended, no rebound tenderness, no hepatospenomegaly, no masses /Rectal: Present: Exam deferred Extremity: Present: non-tender, normal inspection, no pedal edema, no calf tenderness, normal capillary refill, leg pain, other - Left hip surgical wound covered by dry clean bandage no signs of bleeding or infection Skin Exam: Present: normal color, warm/dry, no cyanosis Lymphatic: Present: no adenopathy Neurologic: Present: 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 We will also continue to administer IV antibiotics to treat the infected left hip wound that is growing gram- negative's. Repeat labs ordered for tomorrow morning to follow up on hemoglobin and platelet counts as well as liver enzymes which are mildly elevated. Patient's neurologist requested that brain MRI to evaluate for recurrent stroke be ordered during this hospitalization, therefore an order will be placed. Chiqui ent saw the neurologist a week ago for worsening slow speech and memory deficits and underwent imaging with CT which was inconclusive for recurrent stroke. Therefore the neurologist's recommendation will be followed. Patient is currently being evaluated by the orthopedic surgeon during his hospitalization as well who reported that the patient's left hip wound is healing adequately and does not appear infected superficially. We will continue to administer wound care and patient will also continue with her physical and occupational therapy while in our institution. We will continue to monitor her closely. - Problems/Diagnosis (1) Anemia Problem: Acute Qualifiers: Anemia type: unspecified type Qualified Code(s): D64.9 - Anemia, unspecified (2) Liver failure Problem: Acute (3) Diabetes 1.5, managed as type 2 Problem: Acute (4) Hypotension Problem: Acute (5) Leukocytosis Problem: Acute (6) Bleeding of unknown origin Problem: Acute (7) Dehydration, moderate Problem: Acute (8) Illness Problem: Acute (9) Diabetes 1.5, managed as type 2 Problem: Chronic (10) Pneumonia Problem: Acute Qualifiers: Laterality: right Lung location: lower lobe of lung (11) Thrombocytopenia Problem: Acute
[2018-08-02 11:53] LABS: Total Cells Counted 100
[2018-08-02 12:06] LABS: Iron 62 mcg/dL (35-120); Transferrin Sat. (% Sat.) 52 % (15-55)
[2018-08-02 12:08] LABS: Eosinophil 1 % (0-3); Lymphocyte 21 % (20-51); Monocyte 12 % (0-9); Neutrophil 66 % (42-75); Neutrophil # 3.8 K/mm3 (1.3-6.0); Platelet Estimate Normal (NORMAL); RBC Morphology Normal (NORMAL)
[2018-08-02 12:12] LABS: Prothrombin Time (Patient) 12.4 Seconds (9.1-10.7)
[2018-08-02 12:12] LABS: Folate 17.9 ng/mL (8.6-58.9)
[2018-08-02 12:13] LABS: INR 1.26 INR (0.92-1.08); Partial Thrombolplastin Time 38.3 Seconds (24-32)
--- NOTE | 2018-08-02 13:45 | PATHPSR ---
PHYSICIAN: Nancy Alford MD LAB#: [id number] SPECIMEN DATE: 08/02/2018 CLINICAL INFORMATION: The patient is an 88-year-old woman with history of old CVA, hypertension, type 2 diabetes, chronic renal disease stage III, gout, recent left femoral fracture, was admitted to inpatient to internal medicine due to worsening generalized weakness with dehydration and ongoing anemia. thrombocytopenia and liver failure detected on labs. Patient hospitalized 3 weeks ago for repair of a left displaced femoral fracture when the patient stumbled while ambulating in the community. Left femoral wound is growing Pseudomonas and Proteus speicies reported 08/01/2018. Iron, transferrin saturation, and folate is within normal limits. Peripheral smear review by pathologist is ordered due to anemia and thrombocytopenia. CBC: WBC 5.7 K/mm3, hemoglobin 7.2 gm/dl, hematocrit 22.2 %, MCV is 98.2 fl, MCH is 31.9 pg, MCHC is 32.4 g/dl, Platelet count 64,000/mm. Manual differential: Neutrophils 66 %, bands 0 %, lymphocytes 21 %, monocytes 12 %, eosinophils 1 %, basophils 0 %, atypical reactive lymphocytes 0 %. RED BLOOD CELLS: Normochromic normocytic anemia, 1+ anisocytosis, 1+ sharmila cells PLATELETS: Thrombocytopenia WHITE BLOOD CELLS: mild monocytosis DIAGNOSIS: PERIPHERAL BLOOD SMEAR, REVIEW BY PATHOLOGIST: -MODERATE NORMOCHROMIC NORMOCYTIC ANEMIA -MODERATE THROMBOCYTOPENIA COMMENT: The absolute reticulocyte count is normal, so no increased/decresed RBC production for level of anemia.. The anemia is most likely on the basis of bleeding with depleting but adequate iron stores. D-Dimer (2.46 ug/ml) is elevated likely on the basis of bleeding and coagulation activation. Fibrinogen is not decreased and no increase schistocytes provides evidence against DIC or TTP, respectively but patient needs to be monitored for both these entities. Thrombocytopenia is likely on the basis of liver failure with decreased albumin (1.2 gm/dl) increased PT (12.4), mildly increased bilirubin (1.4) and elevated liver enzyme (AST 481 U/L and ALT 1087 U/L). ITP cannot be completely excluded. Dr. Kay (senior android software engineer) has already been consulted by Dr. Alford and work- up suggested. No immature elements or malignancy is identified on our examination. The findings are communicated by FAX and discussed with Dr. Alford on 08/02/2018.
[2018-08-03] MEDS: CIPROFLOXACIN HCL 25 DROP BTL EACHEYE SCH ×6 (00:32→20:27)
[2018-08-03] MEDS: PIPERACILLIN SODIUM/TAZOBACTAM 3.375 GM in DEXTROSE 5 % IN WATER 100 ML IV SCH ×6 (03:57→20:26)
[2018-08-03] MEDS: ALBUTEROL SULFATE/IPRATROPIUM 3 ML NEBU IH SCH ×4 (06:01→18:09)
[2018-08-03 06:03] LABS: Albumin * 1.3 gm/dl (3.4-5.0); Anion Gap 12.9 mmol/L (6.8-13.8); BUN/Creatinine Ratio 17.6 (9.0-21.6); Bilirubin, Total 1.5 mg/dL (0.0-1.1); Ca. Corrected For Albumin 10.6 mg/dL (8.4-10.2); Calcium * 8.8 mg/dL (7.9-10.9); Carbon Dioxide 24.2 mmol/L (24-32.6); Potassium 4.1 mmol/L (3.4-4.6); Total Protein 5.2 gm/dL (6.2-8.2)
[2018-08-03 06:05] LABS: Mean Cell Volume 97.4 fl (78-100); Mean Corpuscular Hemoglobin 31.7 pg (27-31); Mean Corpuscular Hgb Conc 32.6 g/dl (32-36); Mean Platelet Volume 10.1 fl (8-12.5); Neutrophil # 5.8 K/mm3 (1.3-6.0); Neutrophil % 67.3 % (42-75.0); Platelet Count 75 K/mm3 (150-450); Red Cell Distribution Width 21.3 % (11.5-14.0); White Blood Count 8.6 K/mm3 (4.0-10.5)
[2018-08-03] MEDS: INSULIN REGULAR, HUMAN 100 UNITS/ML VIAL SC SCH ×4 (06:33→20:28)
[2018-08-03 07:22] LABS: Hemoglobin 7.3 gm/dL (12.5-16.0)
[2018-08-03 07:26] LABS: Hematocrit 22.4 % (37.0-47.0)
[2018-08-03] MEDS: DOCUSATE SODIUM 100 MG CAPSULE PO SCH (08:29)
[2018-08-03] MEDS: FOLIC ACID 0.4 MG TABLET PO SCH (08:29)
[2018-08-03] MEDS: CHOLECALCIFEROL 1,000 UNIT CAPSULE PO SCH (08:29)
[2018-08-03] MEDS: NYSTATIN 15 APPL BTL TP SCH ×2 (08:30→20:27)
--- NOTE | 2018-08-03 10:30 | PN ---
Subjective - Date and Time Seen Date: 08/03/18 Time: 10:28 Subjective Narrative: Resting in bed. She states that she has no hip pain. She has been working with physical therapy. No complaints. Left lower extremity: Minimal pain with hip range of motion. Left hip and buttock area stable - Mepilex dressing in place with minimal bloody drainage. no noted erythema. No gross signs of purulence or malodorous drainage. Superficial skin irritation from dressing changes. Assessment: Status post left hip hemiarthroplasty for previous hip fracture Plan: I would recommend dry gauze dressings to the hip and avoid occlusive dressings at this time. Local wound care otherwise. Continue PT. No acute orthopedic intervention needed at this time. Keep scheduled ortho follow-up. Keep wound dry. I again would consider platelet transfusion as she has noted thrombocytopenia and had received multiple units of packed red blood cells without platelets. Objective - Vitals Vitals: Last Vital Signs Temp 36.7 C 08/03/18 08:10 Pulse 103 H 08/03/18 09:23 Resp 20 08/03/18 08:10 BP 92/34 08/03/18 08:10 Pulse Ox 94 08/03/18 08:10 - Abnormal Lab Findings Abnormal Lab Findings: Abnormal Lab Results 08/02/18 08/02/18 08/02/18 Range/Units 05:00 05:00 05:29 RBC (4.2-5.4) M/mm3 Hgb (12.5-16.0) gm/dL Hct (37.0-47.0) % MCH (27-31) pg RDW (11.5-14.0) % Plt Count (150-450) K/mm3 Immature Gran % (Auto) (0.001-0.429) % Immature Gran # (Auto) (0.000-0.0310) K/mm3 Lymphocytes % (20-51) % Monocytes % (0.0-9) % Monocytes % (Manual) 12 H (0-9) % Lymphocytes # (1.5-3.5) k/mm3 Lymphocytes # (Manual) 1.2 L (1.5-3.5) k/mm3 Monocytes # (0.0-1.0) k/mm3 Percent Retic 4.2 H (0.4-1.8) % Immature Retic Fraction 32.7 H (3.0-15.9) % Retic Hgb Content 38.1 H (29-35) pg PT (9.1-10.7) Seconds INR (Anticoag Therapy) (0.92-1.08) INR PTT (Crisp) (24-32) Seconds Fibrinogen (202-388) mg/dL D-Dimer (0.19-0.49) ug/mL BUN (3-23) mg/dL Creatinine (0.4-1.4) mg/dL Est GFR (Non-Af Amer) (60-130) mL/min Calcium Adj for Albumin (8.4-10.2) mg/dL TIBC 120 L (260-445) mcg/dL Total Bilirubin (0.0-1.1) mg/dL AST (0-48) U/L ALT (19-67) U/L Alkaline Phosphatase (50-170) U/L Total Protein (6.2-8.2) gm/dL Albumin (3.4-5.0) gm/dl 08/02/18 08/02/18 08/02/18 Range/Units 11:54 11:54 11:54 RBC (4.2-5.4) M/mm3 Hgb (12.5-16.0) gm/dL Hct (37.0-47.0) % MCH (27-31) pg RDW (11.5-14.0) % Plt Count (150-450) K/mm3 Immature Gran % (Auto) (0.001-0.429) % Immature Gran # (Auto) (0.000-0.0310) K/mm3 Lymphocytes % (20-51) % Monocytes % (0.0-9) % Monocytes % (Manual) (0-9) % Lymphocytes # (1.5-3.5) k/mm3 Lymphocytes # (Manual) (1.5-3.5) k/mm3 Monocytes # (0.0-1.0) k/mm3 Percent Retic (0.4-1.8) % Immature Retic Fraction (3.0-15.9) % Retic Hgb Content (29-35) pg PT 12.4 H (9.1-10.7) Seconds INR (Anticoag Therapy) 1.26 H (0.92-1.08) INR PTT (Crisp) 38.3 H (24-32) Seconds Fibrinogen 498 H (202-388) mg/dL D-Dimer 2.46 H (0.19-0.49) ug/mL BUN (3-23) mg/dL Creatinine (0.4-1.4) mg/dL Est GFR (Non-Af Amer) (60-130) mL/min Calcium Adj for Albumin (8.4-10.2) mg/dL TIBC (260-445) mcg/dL Total Bilirubin (0.0-1.1) mg/dL AST (0-48) U/L ALT (19-67) U/L Alkaline Phosphatase (50-170) U/L Total Protein (6.2-8.2) gm/dL Albumin (3.4-5.0) gm/dl 08/03/18 08/03/18 Range/Units 05:35 05:35 RBC 2.30 L (4.2-5.4) M/mm3 Hgb 7.3 L* (12.5-16.0) gm/dL Hct 22.4 L* (37.0-47.0) % MCH 31.7 H (27-31) pg RDW 21.3 H (11.5-14.0) % Plt Count 75 L (150-450) K/mm3 Immature Gran % (Auto) 4.80 H (0.001-0.429) % Immature Gran # (Auto) 0.41 H (0.000-0.0310) K/mm3 Lymphocytes % 11.1 L (20-51) % Monocytes % 14.9 H (0.0-9) % Monocytes % (Manual) (0-9) % Lymphocytes # 0.95 L (1.5-3.5) k/mm3 Lymphocytes # (Manual) (1.5-3.5) k/mm3 Monocytes # 1.3 H (0.0-1.0) k/mm3 Percent Retic (0.4-1.8) % Immature Retic Fraction (3.0-15.9) % Retic Hgb Content (29-35) pg PT (9.1-10.7) Seconds INR (Anticoag Therapy) (0.92-1.08) INR PTT (Jenni) (24-32) Seconds Fibrinogen (202-388) mg/dL D-Dimer (0.19-0.49) ug/mL BUN 25 H (3-23) mg/dL Creatinine 1.42 H (0.4-1.4) mg/dL Est GFR (Non-Af Amer) 37 L (60-130) mL/min Calcium Adj for Albumin 10.6 H (8.4-10.2) mg/dL TIBC (260-445) mcg/dL Total Bilirubin 1.5 H (0.0-1.1) mg/dL AST 213 H (0-48) U/L ALT 166 H (19-67) U/L Alkaline Phosphatase 985 H (50-170) U/L Total Protein 5.2 L (6.2-8.2) gm/dL Albumin 1.3 L (3.4-5.0) gm/dl Cauti Physician Documentation - Urinary Catheter Management Urethral (Lafleur) Urethral Indwelling: Yes Date of Insertion: 07/30/18
--- NOTE | 2018-08-03 11:32 | PN ---
Subjective - Date and Time Seen Date: 08/03/18 Time: 11:22 Subjective Narrative: I only have a cough Objective Objective Narrative: 88-year-old female admitted for ongoing anemia, generalized weakness, moderate dehydration, liver failure, and right-sided bronchopneumonia, and infected left hip surgical wound was evaluated at bedside and was found to be afebrile and in no acute distress. Patient's condition remained stable, there has been recurrence of fever only residual cough on deep inspiration. Leukocytosis has resolved, and neutrophils and inflammatory markers have decreased. Patient's anemia and thrombocytopenia however persist, hemoglobin has remained stable and it is thought that her anemia is an exacerbation of her anemia of chronic disease. Chief Controller Tower was consulted over the phone and he recommended an extensive work-up with labs such as d-dimer, fibrinogen, coagulation factors and INR, haptoglobin, to rule out condition such as TTP, ITP, and factor deficiencies, results were shared with him and he said that they were non-concerning and that her condition is most likely secondary to her acute infection in her lungs and her wound and that patient should be monitored for any signs of bleeding. He also said that in his opinion it is likely that her platelet levels will plateau and rebound, and sure enough her platelet count increased on today's labs. The forestry workers suggested transfusing platelets only with signs of bleeding or clinical deterioration. In the meantime we will continue with in hospital PT and OT and IV antibiotics for right-sided pneumonia and left hip infected surgical wound. - Review of Systems Generalized/Overall Review: Reports: No Symptoms Reported EENTM: Reports: No Symptoms Reported Respiratory: Reports: Cough Cardiac: Reports: No Symptoms Reported Abdominal: Reports: No Symptoms Reported Genitourinary Symptoms: Reports: No Symptoms Reported Musculoskeletal Complaints: Reports: Joint Pain Neurological: Reports: No Symptoms Reported Skin: Reports: No Symptoms Reported Endocrine: Reports: No Symptoms Reported - Vitals Vitals: Last Vital Signs Temp 36.7 C 08/03/18 08:10 Pulse 103 H 08/03/18 09:23 Resp 20 08/03/18 08:10 BP 92/34 08/03/18 08:10 Pulse Ox 94 08/03/18 08:10 - Abnormal Lab Findings Abnormal Lab Findings: Abnormal Lab Results 08/02/18 08/02/18 08/02/18 Range/Units 05:00 05:00 05:29 RBC (4.2-5.4) M/mm3 Hgb (12.5-16.0) gm/dL Hct (37.0-47.0) % MCH (27-31) pg RDW (11.5-14.0) % Plt Count (150-450) K/mm3 Immature Gran % (Auto) (0.001-0.429) % Immature Gran # (Auto) (0.000-0.0310) K/mm3 Lymphocytes % (20-51) % Monocytes % (0.0-9) % Monocytes % (Manual) 12 H (0-9) % Lymphocytes # (1.5-3.5) k/mm3 Lymphocytes # (Manual) 1.2 L (1.5-3.5) k/mm3 Monocytes # (0.0-1.0) k/mm3 Percent Retic 4.2 H (0.4-1.8) % Immature Retic Fraction 32.7 H (3.0-15.9) % Retic Hgb Content 38.1 H (29-35) pg PT (9.1-10.7) Seconds INR (Anticoag Therapy) (0.92-1.08) INR PTT ([place]enni) (24-32) Seconds Fibrinogen (202-388) mg/dL D-Dimer (0.19-0.49) ug/mL BUN (3-23) mg/dL Creatinine (0.4-1.4) mg/dL Est GFR (Non-Af Amer) (60-130) mL/min Calcium Adj for Albumin (8.4-10.2) mg/dL TIBC 120 L (260-445) mcg/dL Total Bilirubin (0.0-1.1) mg/dL AST (0-48) U/L ALT (19-67) U/L Alkaline Phosphatase (50-170) U/L Total Protein (6.2-8.2) gm/dL Albumin (3.4-5.0) gm/dl 08/02/18 08/02/18 08/02/18 Range/Units 11:54 11:54 11:54 RBC (4.2-5.4) M/mm3 Hgb (12.5-16.0) gm/dL Hct (37.0-47.0) % MCH (27-31) pg RDW (11.5-14.0) % Plt Count (150-450) K/mm3 Immature Gran % (Auto) (0.001-0.429) % Immature Gran # (Auto) (0.000-0.0310) K/mm3 Lymphocytes % (20-51) % Monocytes % (0.0-9) % Monocytes % (Manual) (0-9) % Lymphocytes # (1.5-3.5) k/mm3 Lymphocytes # (Manual) (1.5-3.5) k/mm3 Monocytes # (0.0-1.0) k/mm3 Percent Retic (0.4-1.8) % Immature Retic Fraction (3.0-15.9) % Retic Hgb Content (29-35) pg PT 12.4 H (9.1-10.7) Seconds INR (Anticoag Therapy) 1.26 H (0.92-1.08) INR PTT (Jenni) 38.3 H (24-32) Seconds Fibrinogen 498 H (202-388) mg/dL D-Dimer 2.46 H (0.19-0.49) ug/mL BUN (3-23) mg/dL Creatinine (0.4-1.4) mg/dL Est GFR (Non-Af Amer) (60-130) mL/min Calcium Adj for Albumin (8.4-10.2) mg/dL TIBC (260-445) mcg/dL Total Bilirubin (0.0-1.1) mg/dL AST (0-48) U/L ALT (19-67) U/L Alkaline Phosphatase (50-170) U/L Total Protein (6.2-8.2) gm/dL Albumin (3.4-5.0) gm/dl 08/03/18 08/03/18 Range/Units 05:35 05:35 RBC 2.30 L (4.2-5.4) M/mm3 Hgb 7.3 L* (12.5-16.0) gm/dL Hct 22.4 L* (37.0-47.0) % MCH 31.7 H (27-31) pg RDW 21.3 H (11.5-14.0) % Plt Count 75 L (150-450) K/mm3 Immature Gran % (Auto) 4.80 H (0.001-0.429) % Immature Gran # (Auto) 0.41 H (0.000-0.0310) K/mm3 Lymphocytes % 11.1 L (20-51) % Monocytes % 14.9 H (0.0-9) % Monocytes % (Manual) (0-9) % Lymphocytes # 0.95 L (1.5-3.5) k/mm3 Lymphocytes # (Manual) (1.5-3.5) k/mm3 Monocytes # 1.3 H (0.0-1.0) k/mm3 Percent Retic (0.4-1.8) % Immature Retic Fraction (3.0-15.9) % Retic Hgb Content (29-35) pg PT (9.1-10.7) Seconds INR (Anticoag Therapy) (0.92-1.08) INR PTT ([place]) (24-32) Seconds Fibrinogen (202-388) mg/dL D-Dimer (0.19-0.49) ug/mL BUN 25 H (3-23) mg/dL Creatinine 1.42 H (0.4-1.4) mg/dL Est GFR (Non-Af Amer) 37 L (60-130) mL/min Calcium Adj for Albumin 10.6 H (8.4-10.2) mg/dL TIBC (260-445) mcg/dL Total Bilirubin 1.5 H (0.0-1.1) mg/dL AST 213 H (0-48) U/L ALT 166 H (19-67) U/L Alkaline Phosphatase 985 H (50-170) U/L Total Protein 5.2 L (6.2-8.2) gm/dL Albumin 1.3 L (3.4-5.0) gm/dl - Exam Constitutional: Present: Alert, Oriented x3, Cooperative, Well developed, Well nourished, No distress, Elderly ENT Exam: Present: normal ENT inspection, hearing grossly normal, pharynx normal, TMs normal Neck: Present: non-tender, full range of motion, supple, normal inspection, trachea midline Breasts: Present: Exam deferred Respiratory: Present: crackles - Mild bibasilar crackles Cardiovascular/Chest: Present: normal peripheral pulses, regular rate, rhythm, no chest tenderness, no edema, no gallop, no JVD, no murmur, no rub Abdomen: Present: Normal bowel sounds, soft, nontender, nondistended, no rebound tenderness, no hepatospenomegaly, no masses /Rectal: Present: Exam deferred Extremity: Present: no pedal edema, no calf tenderness, normal capillary refill, leg pain, other - Left hip covered by dry bandage with no signs of bleeding or infection, decreased range of motion Skin Exam: Present: normal color, warm/dry, no cyanosis - of left lower extremity Lymphatic: Present: no adenopathy Neurologic: Present: cigarette vendor II-XII nml as tested, normal cerebellar test, no motor/sensory deficits, alert, normal mood/affect, oriented x 3 Appearance: Present: appropriate appearance, appropriate insight, neat, no memory impairment Eye contact: Present: cooperative, good eye contact, normal speech Thoughts: Present: normal thought pattern, no apparent hallucination Cauti Physician Documentation - Urinary Catheter Management Urethral (Lafleur) Urethral Indwelling: Yes Date of Insertion: 07/30/18 Assessment/Plan Plan Narrative: Patient will continue to receive IV antibiotics, follow-up labs have been ordered for tomorrow morning to evaluate inflammatory markers. We will continue to watch her for any signs and symptoms of bleeding to determine whether or not it is necessary to transfuse platelets. For now thrombocytopenia have improved and anemia has remained stabilized. - Problems/Diagnosis (1) Anemia Problem: Acute Qualifiers: Anemia type: unspecified type Qualified Code(s): D64.9 - Anemia, unspecified (2) Liver failure Problem: Acute (3) Diabetes 1.5, managed as type 2 Problem: Acute (4) Hypotension Problem: Acute (5) Leukocytosis Problem: Acute (6) Bleeding of unknown origin Problem: Acute (7) Dehydration, moderate Problem: Acute (8) Illness Problem: Acute (9) Diabetes 1.5, managed as type 2 Problem: Chronic (10) Pneumonia Problem: Acute Qualifiers: Laterality: right Lung location: lower lobe of lung (11) Thrombocytopenia Problem: Acute
[2018-08-03] MEDS: FERROUS SULFATE 325 MG TABLET PO SCH ×2 (13:33→17:21)
[2018-08-03 15:27] LABS: Haptoglobin 127 mg/dL (43-212)
[2018-08-04] MEDS: ALBUTEROL SULFATE/IPRATROPIUM 3 ML NEBU IH SCH ×4 (00:09→19:51)
[2018-08-04] MEDS: CIPROFLOXACIN HCL 25 DROP BTL EACHEYE SCH ×6 (00:24→19:33)
[2018-08-04] MEDS: PIPERACILLIN SODIUM/TAZOBACTAM 3.375 GM in DEXTROSE 5 % IN WATER 100 ML IV SCH ×6 (03:55→19:33)
[2018-08-04] MEDS: INSULIN REGULAR, HUMAN 100 UNITS/ML VIAL SC SCH ×4 (07:04→20:53)
[2018-08-04] MEDS: DOCUSATE SODIUM 100 MG CAPSULE PO SCH (08:15)
[2018-08-04] MEDS: FERROUS SULFATE 325 MG TABLET PO SCH ×3 (08:15→17:07)
[2018-08-04] MEDS: FOLIC ACID 0.4 MG TABLET PO SCH (08:15)
[2018-08-04] MEDS: CHOLECALCIFEROL 1,000 UNIT CAPSULE PO SCH (08:15)
[2018-08-04] MEDS: NYSTATIN 15 APPL BTL TP SCH ×2 (08:16→20:50)
--- NOTE | 2018-08-04 09:29 | PN ---
Subjective - Date and Time Seen Date: 08/04/18 Time: 09:16 Subjective Narrative: I feel better but off balance Objective Objective Narrative: 88-year-old female admitted for ongoing anemia, generalized weakness, moderate dehydration, liver failure, and right-sided bronchopneumonia, and infected left hip surgical wound was evaluated at bedside and was found to be afebrile and in no acute distress. Patient appeared to be in better spirits during today's bedside evaluation, she continues to have a persistent dry cough so we will administer antitussives. Her only other complaint was feeling off balance when being transferred from bed to chair which worries her, she was instructed to always use the call light to call the nurse and the same goes for the long term to assist her when she needs to get up. Patient will complete IV antibiotics tomorrow so discharge planning is underway. She is to return to [facility] to continue her rehab and physical therapy. Platelet levels remain stable per yesterday's labs in fact increased compared to previous levels. There is currently no signs of bleeding only small ecchymoses on her upper extremity due to renal puncture during hospitalization. Repeat labs will be ordered for tomorrow morning for reevaluation before discharge. In the meantime Lafleur catheter has been kept in per the orthopedic surgeons recommendation to prevent saturation of her bandages with urine, it will be removed before discharge. - Review of Systems Generalized/Overall Review: Reports: No Symptoms Reported EENTM: Reports: No Symptoms Reported Respiratory: Reports: Cough Cardiac: Reports: No Symptoms Reported Abdominal: Reports: No Symptoms Reported Genitourinary Symptoms: Reports: No Symptoms Reported Musculoskeletal Complaints: Reports: Joint Pain Neurological: Reports: No Symptoms Reported Skin: Reports: No Symptoms Reported Endocrine: Reports: No Symptoms Reported - Vitals Vitals: Last Vital Signs Temp 36.8 C 08/04/18 06:30 Pulse 108 H 08/04/18 06:30 Resp 16 08/04/18 06:30 BP 111/54 08/04/18 06:30 Pulse Ox 95 08/04/18 06:30 - Abnormal Lab Findings Abnormal Lab Findings: Abnormal Lab Results 08/04/18 08/04/18 Range/Units 05:29 05:29 ESR 116 H (0-15) mm/hr C-Reactive Prot, Quant 18.2 H (0.0-0.9) mg/dL - Exam Constitutional: Present: Alert, Oriented x3, Cooperative, Well developed, Well nourished, No distress ENT Exam: Present: normal ENT inspection, hearing grossly normal, pharynx normal, TMs normal Neck: Present: non-tender, full range of motion, supple, normal inspection, trachea midline Breasts: Present: Exam deferred Respiratory: Present: chest non-tender, lungs clear, normal breath sounds, no respiratory distress, no accessory muscle use Cardiovascular/Chest: Present: normal peripheral pulses, regular rate, rhythm, no chest tenderness, no edema, no gallop, no JVD, no murmur, no rub Abdomen: Present: Normal bowel sounds, soft, nontender, nondistended, no rebound tenderness, no hepatospenomegaly, no masses /Rectal: Present: Exam deferred Extremity: Present: non-tender, no pedal edema, no calf tenderness, normal capillary refill Skin Exam: Present: no cyanosis, other - Scattered small ecchymoses in upper extremity venopuncture site. Lymphatic: Present: no adenopathy Neurologic: Present: air tucker II-XII nml as tested, normal cerebellar test, no motor/sensory deficits, alert, normal mood/affect, oriented x 3 Appearance: Present: appropriate appearance, appropriate insight, neat, no memory impairment Eye contact: Present: cooperative, good eye contact, normal speech Thoughts: Present: normal thought pattern, no apparent hallucination Cauti Physician Documentation - Urinary Catheter Management Urethral (Lafleur) Urethral Indwelling: Yes Reason for Continuing Indwelling Catheter: Assist healing open wound Date of Insertion: 07/30/18 Assessment/Plan Plan Narrative: We will continue to treat patient with IV antibiotics and she will continue to receive PT and OT while hospitalized at our institution. Discharge planning is underway to discharge patient to [facility] which is where she resided before coming here. Repeat labs will be ordered for evaluation of platelet and hemoglobin levels before discharge. Inflammatory markers have decreased to half of what they were when she arrived indicating decrease systemic inflammation, and leukocytosis has resolved. However patient remained stable and her anemia of chronic disease and platelets are increasing. We will reevaluate her tomorrow morning to determine if she is in adequate condition before discharging her to the long term. - Problems/Diagnosis (1) Anemia Problem: Acute Qualifiers: Anemia type: unspecified type Qualified Code(s): D64.9 - Anemia, unspecified (2) Liver failure Problem: Acute (3) Diabetes 1.5, managed as type 2 Problem: Acute (4) Hypotension Problem: Acute (5) Leukocytosis Problem: Acute (6) Bleeding of unknown origin Problem: Acute (7) Dehydration, moderate Problem: Acute (8) Illness Problem: Acute (9) Diabetes 1.5, managed as type 2 Problem: Chronic (10) Pneumonia Problem: Acute Qualifiers: Laterality: right Lung location: lower lobe of lung (11) Thrombocytopenia Problem: Acute (12) Infected surgical wound Problem: Acute
[2018-08-05] MEDS: ALBUTEROL SULFATE/IPRATROPIUM 3 ML NEBU IH SCH ×3 (00:51→13:06)
[2018-08-05] MEDS: CIPROFLOXACIN HCL 25 DROP BTL EACHEYE SCH ×3 (00:54→11:49)
[2018-08-05] MEDS: PIPERACILLIN SODIUM/TAZOBACTAM 3.375 GM in DEXTROSE 5 % IN WATER 100 ML IV SCH ×4 (04:13→12:01)
[2018-08-05 05:44] LABS: Mean Cell Volume 99.6 fl (78-100); Mean Corpuscular Hemoglobin 31.7 pg (27-31); Mean Corpuscular Hgb Conc 31.8 g/dl (32-36); Mean Platelet Volume 9.8 fl (8-12.5); Neutrophil # 6.2 K/mm3 (1.3-6.0); Neutrophil % 71.9 % (42-75.0); Platelet Count 101 K/mm3 (150-450); Red Blood Count 2.24 M/mm3 (4.2-5.4); Red Cell Distribution Width 21.9 % (11.5-14.0); White Blood Count 8.6 K/mm3 (4.0-10.5)
[2018-08-05 06:02] LABS: Albumin * 1.2 gm/dl (3.4-5.0); Anion Gap 15.2 mmol/L (6.8-13.8); BUN/Creatinine Ratio 17.1 (9.0-21.6); Bilirubin, Total 1.5 mg/dL (0.0-1.1); Ca. Corrected For Albumin 10.4 mg/dL (8.4-10.2); Calcium * 8.5 mg/dL (7.9-10.9); Carbon Dioxide 22.7 mmol/L (24-32.6); Potassium 3.9 mmol/L (3.4-4.6); Total Protein 4.6 gm/dL (6.2-8.2)
[2018-08-05] MEDS: INSULIN REGULAR, HUMAN 100 UNITS/ML VIAL SC SCH ×2 (06:31→11:57)
[2018-08-05 07:33] LABS: Hematocrit 22.3 % (37.0-47.0); Hemoglobin 7.1 gm/dL (12.5-16.0)
[2018-08-05] MEDS: CHOLECALCIFEROL 1,000 UNIT CAPSULE PO SCH (08:47)
[2018-08-05] MEDS: DOCUSATE SODIUM 100 MG CAPSULE PO SCH (08:47)
[2018-08-05] MEDS: NYSTATIN 15 APPL BTL TP SCH (08:47)
[2018-08-05] MEDS: FOLIC ACID 0.4 MG TABLET PO SCH (08:47)
[2018-08-05] MEDS: FERROUS SULFATE 325 MG TABLET PO SCH (08:47)
--- NOTE | 2018-08-05 10:07 | DS ---
(1) Anemia Problem: Acute Qualifiers: Anemia type: due to chronic kidney disease (2) Liver failure Problem: Ruled-out (3) Diabetes 1.5, managed as type 2 Problem: Chronic (4) Hypotension Problem: Resolved (5) Leukocytosis Problem: Resolved (6) Bleeding of unknown origin Problem: Ruled-out (7) Dehydration, moderate Problem: Resolved (8) Illness Problem: Chronic (9) Pneumonia Problem: Acute Qualifiers: Laterality: right Lung location: lower lobe of lung (10) Thrombocytopenia Problem: Acute (11) Infected surgical wound Problem: Resolved Description of Stay: 88-year-old female admitted for anemia, rule out of internal bleeding, infected surgical wound of the left hip, right-sided bronchopneumonia, moderate dehydration, generalized weakness, was evaluated at bedside and was found to be afebrile and in no acute distress. Patient has shown significant clinical improvement since arriving at our institution, her color and strength have improved. She has responded favorably to IV hydration and IV antibiotics. Labs this morning demonstrate resolution of her leukocytosis and improvement of her liver function, yesterday's labs confirmed improvement of her inflammatory markers after in hospital management. During the patient stay she received regular wound care for her left hip surgical wound and was evaluated and monitored by the orthopedic surgeon Dr. Antonio. He reported great improv ement and adequate healing of the patient's surgical wound and was involved in treating the infection and that site. Patient also underwent regular physical therapy as well as occupational therapy during her hospitalization to prevent deconditioning and to improve her mobilization. Ongoing issues are persistent anemia likely an exacerbation of her anemia of chronic disease secondary to her chronic kidney disease, and thrombocytopenia which after a full hematologic work-up is likely due to her acute infection. Liver enzyme has been on a downward trend towards normal levels since infection has been treated and her mild jaundice has resolved. Patient also had bilateral bacterial conjunctivitis on admission and was treated with ophthalmic drops, but both her eyes that was noted to be clear with no discharge or dried secretion during today's evaluation. Mrs. Estrada denies shortness of breath or any difficulty breathing and reports feeling better. Therefore given these findings decision to discharge patient back to the [facility] with orders for follow-up labs to evaluate platelets and anemia, and follow-up with myself or PCP and Dr. Antonio as well as vp scientific affairs. Transportation to the care center is being organized. Procedures Performed: none Results and Findings: Lab Pending Results 07/29/18 10:41: WBC 14.9 H, RBC 2.29 L, Hgb 7.3 L*, Hct 22.9 L*, MCV 100.0, MCH 31.9 H, MCHC 31.9 L, RDW 21.4 H, Plt Count 116 L, MPV 9.1, Neutrophils % (Manual) 78 H, Band Neuts % (Manual) 11 H, Lymphocytes % (Manual) 4 L, Monocytes % (Manual) 4, Eosinophils % (Manual) 2, Neutrophils # (Manual) 11.6 H, Lymphocytes # (Manual) 1.2 L, Eosinophils # (Manual) 0.3, Atypic/Reactive Lymphs 1, Platelet Estimate Decreased L, Polychromasia Trace, Hypochromasia Trace, Anisocytosis 2+, Macrocytosis 2+, Target Cells Trace 07/29/18 12:43: ESR Greater than 120 H 07/29/18 12:43: C-Reactive Prot, Quant 30.5 H 07/29/18 12:45: Blood Type O Positive, Antibody Screen Negative, Crossmatch See Detail 07/29/18 12:45: Hgb Cancelled, Hct Cancelled 07/29/18 18:40: Urine Color Yellow, Urine Appearance Slightly cloudy, Urine pH 6.5, Ur Specific F[place] <=1.005, Urine Protein 15 H, Urine Glucose (UA) Negative, Urine Ketones Negative, Urine Blood Negative, Urine Nitrate Negative, Urine Bilirubin Negative, Prot Sulfosalicylic Acd Negative, Urine Urobilinogen 2.0 H, Ur Leukocyte Esterase Negative, Urine RBC None seen, Urine WBC None seen, Ur Epithelial Cells Trace, Urine Bacteria None seen, Urine Comment Culture ordered L 07/29/18 : Hgb 8.0 L, Hct 25.1 L 07/30/18 05:54: WBC 12.1 H, RBC 2.43 L, Hgb 7.8 L*, Hct 23.3 L*, MCV 95.9, MCH 32.1 H, MCHC 33.5, RDW 19.9 H, Plt Count 95 L, MPV 9.7, Immature Gran % (Auto) 1.00 H, Immature Gran # (Auto) 0.12 H, Neutrophils % 82.2 H, Lymphocytes % 10.4 L, Monocytes % 5.9, Eosinophils % 0.2, Basophils % 0.3, Nucleated RBC % 0.1, Neutrophils # 9.9 H, Lymphocytes # 1.26 L, Monocytes # 0.7, Eosinophils # 0.0, Absolute Basophils 0.0 07/30/18 05:54: Sodium 138, Plasma Sodium 138, Potassium 4.3, Chloride 105, Carbon Dioxide 24.5, Anion Gap 12.8, BUN 38 H, Creatinine 1.41 H, Est GFR (Non- Af Amer) 38 L, BUN/Creatinine Ratio 27.0 H, Random Glucose 94 D, Calcium 8.7, Calcium Adj for Albumin 10.5 H, Total Bilirubin 2.2 H, AST 330 H, ALT 179 H, Alkaline Phosphatase 999 H, Total Protein 5.2 L, Albumin 1.3 L 07/31/18 06:00: WBC 9.4 D, RBC 2.22 L, Hgb 7.0 L*, Hct 21.5 L*, MCV 96.8, MCH 31.5 H, MCHC 32.6, RDW 19.9 H, Plt Count 114 L, MPV 9.7, Immature Gran % (Auto) 1.70 H, Immature Gran # (Auto) 0.16 H, Neutrophils % 75.4 H, Lymphocytes % 13.4 L, Monocytes % 8.4, Eosinophils % 0.7, Basophils % 0.4, Nucleated RBC % 0.0, Neutrophils # 7.1 H, Lymphocytes # 1.26 L, Monocytes # 0.8, Eosinophils # 0.1, Absolute Basophils 0.0 07/31/18 06:00: Sodium 137, Plasma Sodium 137, Potassium 4.1, Chloride 104, Carbon Dioxide 24.5, Anion Gap 12.6, BUN 35 H, Creatinine 1.57 H, Est GFR (Non- Af Amer) 33 L, BUN/Creatinine Ratio 22.3 H, Random Glucose 113 H, Calcium 8.4, Calcium Adj for Albumin 10.3 H, Total Bilirubin 1.3 H, AST 255 H, ALT 146 H, Alkaline Phosphatase 982 H, Total Protein 4.9 L, Albumin 1.2 L 07/31/18 11:53: WBC 8.8, RBC 2.31 L, Hgb 7.3 L*, Hct 22.5 L*, MCV 97.4, MCH 31.6 H, MCHC 32.4, RDW 20.7 H, Plt Count 112 L, MPV 9.2, Immature Gran % (Auto) 2.00 H, Immature Gran # (Auto) 0.18 H, Neutrophils % 76.0 H, Lymphocytes % 12.2 L, Monocytes % 9.1 H, Eosinophils % 0.5, Basophils % 0.2, Nucleated RBC % 0.0, Neutrophils # 6.7 H, Lymphocytes # 1.08 L, Monocytes # 0.8, Eosinophils # 0.0, Absolute Basophils 0.0 08/01/18 09:23: ESR 119 H 08/01/18 09:23: C-Reactive Prot, Quant 17.7 H 08/02/18 05:00: Absolute Retic 0.0951, Percent Retic 4.2 H, Immature Retic Fraction 32.7 H, Retic Hgb Content 38.1 H 08/02/18 05:00: Peripheral Blood Smear Smear sent to path. 08/02/18 05:00: Iron 62, TIBC 120 L, Transferrin % Sat 52 08/02/18 05:00: Lactate Dehydrogenase 184, Folate 17.9 08/02/18 05:00: Haptoglobin 127 08/02/18 05:00: Direct Antiglob Test Negative 08/02/18 05:29: WBC 5.7 D, RBC 2.26 L, Hgb 7.2 L*, Hct 22.2 L*, MCV 98.2, MCH 31.9 H, MCHC 32.4, RDW 21.5 H, Plt Count 64 L, MPV 9.3, Immature Gran % (Auto) 4.20 H, Immature Gran # (Auto) 0.24 H, Neutrophils % 61.3, Neutrophils % (Manual) 66, Lymphocytes % 17.7 L, Lymphocytes % (Manual) 21, Monocytes % 14.2 H, Monocytes % (Manual) 12 H, Eosinophils % 2.1, Eosinophils % (Manual) 1, Basophils % 0.5, Nucleated RBC % 0.0, Neutrophils # 3.5, Neutrophils # (Manual) 3.8, Lymphocytes # 1.00 L, Lymphocytes # (Manual) 1.2 L, Monocytes # 0.8, Monocytes # (Manual) 0.7, Eosinophils # 0.1, Eosinophils # (Manual) 0.1, Absol enterprise Basophils 0.0, Platelet Estimate Normal, RBC Morphology Normal 08/02/18 05:29: Sodium 137, Plasma Sodium 137, Potassium 4.1, Chloride 103, Carbon Dioxide 25.8, Anion Gap 12.3, BUN 28 H, Creatinine 1.55 H, Est GFR (Non- Af Amer) 34 L, BUN/Creatinine Ratio 18.1, Random Glucose 100, Calcium 8.7, Calcium Adj for Albumin 10.6 H, Total Bilirubin 1.3 H, AST 481 H, ALT 233 H, A lkaline Phosphatase 1087 H, Total Protein 5.0 L, Albumin 1.2 L 08/02/18 11:54: PT 12.4 H, INR (Anticoag Therapy) 1.26 H, PTT (Jenni) 38.3 H 08/02/18 11:54: Fibrinogen 498 H 08/02/18 11:54: D-Dimer 2.46 H 08/03/18 05:35: WBC 8.6 D, RBC 2.30 L, Hgb 7.3 L*, Hct 22.4 L*, MCV 97.4, MCH 31.7 H, MCHC 32.6, RDW 21.3 H, Plt Count 75 L, MPV 10.1, Immature Gran % (Auto) 4.80 H, Immature Gran # (Auto) 0.41 H, Neutrophils % 67.3, Lymphocytes % 11.1 L, Monocytes % 14.9 H, Eosinophils % 1.6, Basophils % 0.3, Nucleated RBC % 0.0, Neutrophils # 5.8, Lymphocytes # 0.95 L, Monocytes # 1.3 H, Eosinophils # 0.1, Absolute Basophils 0.0 08/03/18 05:35: Sodium 134, Plasma Sodium 134, Potassium 4.1, Chloride 101, Carbon Dioxide 24.2, Anion Gap 12.9, BUN 25 H, Creatinine 1.42 H, Est GFR (Non- Af Amer) 37 L, BUN/Creatinine Ratio 17.6, Random Glucose 110, Calcium 8.8, Calcium Adj for Albumin 10.6 H, Total Bilirubin 1.5 H, AST 213 H, ALT 166 H, Alkaline Phosphatase 985 H, Total Protein 5.2 L, Albumin 1.3 L 08/04/18 05:29: ESR 116 H 08/04/18 05:29: C-Reactive Prot, Quant 18.2 H 08/05/18 05:35: WBC 8.6, RBC 2.24 L, Hgb 7.1 L*, Hct 22.3 L*, MCV 99.6, MCH 31.7 H, MCHC 31.8 L, RDW 21.9 H, Plt Count 101 L, MPV 9.8, Immature Gran % (Auto) 2.30 H, Immature Gran # (Auto) 0.20 H, Neutrophils % 71.9, Lymphocytes % 12.1 L, Monocytes % 12.1 H, Eosinophils % 1.3, Basophils % 0.3, Nucleated RBC % 0.0, Neutrophils # 6.2 H, Lymphocytes # 1.04 L, Monocytes # 1.0, Eosinophils # 0.1, Absolute Basophils 0.0 08/05/18 05:35: Sodium 134, Plasma Sodium 134, Potassium 3.9, Chloride 100, Carbon Dioxide 22.7 L, Anion Gap 15.2 H, BUN 24 H, Creatinine 1.40, Est GFR (Non-Af Amer) 38 L, BUN/Creatinine Ratio 17.1, Random Glucose 127 H, Calcium 8.5, Calcium Adj for Albumin 10.4 H, Total Bilirubin 1.5 H, AST 104 H, ALT 109 H, Alkaline Phosphatase 942 H, Total Protein 4.6 L, Albumin 1.2 L Discharge Location: [facility] Disposition: SNF Condition: Fair Face to Face Encounter completed per [facility] Guidelines: No Level of Care: SNF Discharge Activity: Activity as tolerated Discharge Diet: Consistent carbs Correction Therapy: Physicial Therapy, Occupation Therapy, Speech Therapy Referrals: Nancy Alford MD [Primary Care Provider] - Timoteo Ricci MD [Staff Physician] - Jamshid Murillo MD [Associate] - Additional Patient Instructions (free text): Dry gauze dressings to the hip and avoid occlusive dressings at this time. Ortho appt 08/15/18 at 10:15am. Follow up with Dr Alford on 08/15 near her ortho appointment time. Prescriptions (Any new or edited meds): Benzonatate 200 mg PO TID PRN #60 cap PRN Reason: cough Ferrous Sulfate 325 mg PO TID #180 tablet. traMADol HCL [Tramadol HCl] 50 mg PO Q6H PRN #30 tablet PRN Reason: Pain Complete Home Medications List: Complete Home Medication List: blood-glucose meter kit See Dose Instructions .ROUTE .MEDSUPPLY ea 04/04/18 blood sugar diagnostic strips See Dose Instructions .ROUTE .MEDSUPPLY #100 ea 04/14/18 lancets 30 gauge See Dose Instructions .ROUTE .MEDSUPPLY #100 ea 04/14/18 Allopurinol [Zyloprim] 300 mg PO DAILY 07/06/18 Carvedilol [Coreg] 6.25 mg PO BID 07/06/18 Cholecalciferol (Vitamin D3) [Vitamin D3] 2,000 unit PO DAILY 07/06/18 Folic Acid 0.4 mg PO DAILY 07/06/18 Lisinopril 20 mg PO DAILY 07/06/18 Ubidecarenone [Coenzyme Q10] 100 mg PO DAILY 07/06/18 guaifenesin ER 1,200 mg tablet, extended release 12 hr 1,200 mg PO Q12H PRN #60 tab 07/25/18 Acetaminophen [Tylenol] 500 mg PO Q4H 07/29/18 Clopidogrel Bisulfate [Plavix] 75 mg PO DAILY 07/29/18 Benzonatate 200 mg PO TID PRN #60 cap 08/05/18 Ferrous Sulfate 325 mg PO TID #180 tablet. 08/05/18 traMADol HCL [Tramadol HCl] 50 mg PO Q6H PRN #30 tablet 08/05/18
[2018-08-05 13:28] VITALS: BP 117/51
== END 2018-08-05 13:25 | DRG 811 ==
LOC: CCFAL → LAB 10:21 → MS 11:41
PROVIDERS: ADMIT Family Medicine; ATTEND Family Medicine
DX: D72.829 Elevated white blood cell count, unspecified; N17.9 Acute kidney failure, unspecified; T81.41XA Infection following a procedure, superficial incisional surgical site, initial encounter; D50.0 Iron deficiency anemia secondary to blood loss (chronic); I12.9 Hypertensive chronic kidney disease with stage 1 through stage 4 chronic kidney disease, or unspecified chronic kidney disease; E86.0 Dehydration; H10.89 Other conjunctivitis; S40.012D Contusion of left shoulder, subsequent encounter; D63.1 Anemia in chronic kidney disease; R53.1 Weakness; E11.22 Type 2 diabetes mellitus with diabetic chronic kidney disease; J18.1 Lobar pneumonia, unspecified organism; N18.3 Chronic kidney disease, stage 3 (moderate); D69.6 Thrombocytopenia, unspecified; K72.00 Acute and subacute hepatic failure without coma; Z86.73 Personal history of transient ischemic attack (TIA), and cerebral infarction without residual deficits
CPT/HCPCS: 36415; 70450; 71010; 71045; 73200; 80053; 81001; 82746; 83010; 83540; 83550; 83615; 83918; 83921; 85007; 85014; 85018; 85025; 85045; 85060; 85379; 85384; 85610; 85652; 85730; 86140; 86850; 86880; 87040; 87070; 87077; 87081; 87086; 87186; 92526; 92610; 94640; 94664; 97110; 97163; 97165; 97530; 97535; P9016